=== PATIENT | female | born 1995 | race Caucasian/White ===

== ENCOUNTER 2017-01-30 12:48 | Emergency (ER) | payer BC ==
[2017-01-30] MEDS ORDERED: diphenhydrAMINE 50 MG/ML SDV IVPUSH ONE (13:23)
[2017-01-30] MEDS ORDERED: Sodium Chloride 0.9% 10 ML Syringe FLUSH PRN (13:23)
[2017-01-30] MEDS ORDERED: Metoclopramide 10 MG/2 ML SDV IVPUSH ONE (13:23)
[2017-01-30] MEDS ORDERED: Sodium Chloride 0.9% 500 ML IV ONE (13:24)
[2017-01-30] MEDS ORDERED: Famotidine 20 MG/2 ML SDV IVPUSH ONE (14:24)
--- NOTE | 2017-01-30 14:25 | EDM.PDOC ---
ED HPI DIZZINESS - General Chief Complaint: Neurological Problem Stated Complaint: HEADACHE x 5DAYS, SYNCOPE Time Seen by Provider: 01/30/17 13:06 Source of Information: Reports: Patient, RN notes reviewed - History of Present Illness INITIAL COMMENTS - FREE TEXT/NARRATIVE: 21-year-old female comes in with headache, nausea, vomiting, hematemesis states she's passed out 3 times today. She states she's had a left-sided throbbing headache for about 4-5 days. Last evening she started vomiting with that. States she vomited up some blood. She states she vomited blood again this morning times one. Then later this morning and early afternoon she had several spells of feeling dizzy, lightheaded and states she passed out 2 or 3 times. At this time she still feels somewhat dizzy and lightheaded. Continues to have moderate left-sided headache. The nausea is better. She's not having abdominal pain or diarrhea at this time. She's been drinking water. She's been taking occasional ibuprofen for the headache. Also she has some "bruises on her back that are of concern to her. 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 OB/BYN History: A0 Psychiatric History: Reports: Depression Hematologic History: Reports: Anemia - Past Surgical History Female Surgical History: Reports: None Oncologic Surgical History: Reports: Bone marrow aspiration Other Oncologic Surgeries/Procedures: had bone marrow biopsy- normal Social & Family History - Family History Family Medical History: Noncontributory - Tobacco Use Smoking Status *Q: Never Smoker Used Tobacco, but Quit: Yes Month Tobacco Last Used: 2013 Second Hand Smoke Exposure: No - Caffeine Use Caffeine Use: Reports: None - Alcohol Use Days Per Week of Alcohol Use: 0 - Recreational Drug Use Recreational Drug Use: No ED ROS GENERAL - Review of Systems Review Of Systems: See Below Constitutional: Denies: fever, chills HEENT: Denies: Sinus problem, Throat pain Respiratory: Denies: Shortness of Breath Cardiovascular: Denies: Chest pain GI/Abdominal: Reports: Hematemesis, Nausea, Vomiting. Denies: Abdominal pain, Diarrhea Musculoskeletal: Denies: back pain, joint pain Skin: Reports: bruising (Lower mid back) Neurological: Reports: Dizziness, Headache, Weakness (Generalized). Denies: Numbness, Tingling ED EXAM, DIZZINESS - Physical Exam Exam: See Below General Appearance: alert, no apparent distress Eye Exam: bilateral eye: PERRL Nose: normal inspection Throat/Mouth: Normal inspection, Normal oropharynx, Other (Oral mucosa is somewhat dry) Head Exam: atraumatic. No: facial swelling Neck: supple, full range of motion Respiratory/Chest: no respiratory distress, lungs clear, normal breath sounds Cardiovascular: regular rate, rhythm GI/Abdominal: soft, other (Very mild tenderness upper mid abdomen and left lower quadrant). No: guarding, rebound Neurological: alert, no motor/sensory deficits, oriented x 3 Back Exam: No: paraspinal tenderness, vertebral tenderness Extremities: normal inspection, normal range of motion. No: leg pain Skin Exam: Warm, Dry, Normal color, No rash, Other (2 small oval areas of very slight discoloration lower mid back, no bruising visible at this time, no warmth or erythema) Course - Vital Signs Last Recorded V/S: Last Vital Signs Temp 98.3 F 01/30/17 13:02 Pulse 79 01/30/17 13:02 Resp 16 01/30/17 13:02 BP Pulse Ox 99 01/30/17 13:02 Orthostatic Blood Pressure [ 124/89 Standing] Orthostatic Blood Pressure [ 120/83 Supine] - Orders/Labs/Meds Orders: Active Orders 24 hr Category Date Time Status Peripheral IV Care [RC] . DIRECTED Care 01/30/17 13:24 Active HCG QUALITATIVE,URINE [URCHEM] Stat Lab 01/30/17 14:18 Ordered Sodium Chloride 0.9% [Saline Flush] Med 01/30/17 13:23 Active 10 ml FLUSH ASDIRECTED PRN Peripheral IV Insertion Adult [OM.PC] Stat Oth 01/30/17 13:22 Ordered Medication Orders Sodium Chloride (Saline Flush) 10 ml FLUSH ASDIRECTED PRN PRN Reason: Keep Vein Open Last Admin: 01/30/17 13:48 Dose: 10 ml Labs: Laboratory Tests 01/30/17 01/30/17 Range/Units 13:30 13:30 WBC 6.35 (3.98-10.04) K/mm3 RBC 4.38 (3.98-5.22) M/mm3 Hgb 12.4 (11.2-15.7) gm/L Hct 38.1 (34.1-44.9) % MCV 87.0 (79.4-94.8) fl MCH 28.3 (25.6-32.2) pg MCHC 32.5 (32.2-35.5) g/dl RDW Std Deviation 48.4 H (36.4-46.3) fL Plt Count 288 (182-369) K/mm3 MPV 11.0 (9.4-12.3) fl Neut % (Auto) 46.0 (34.0-71.1) % Lymph % (Auto) 42.0 (19.3-51.7) % Leon % (Auto) 9.8 (4.7-12.5) % Eos % (Auto) 1.1 (0.7-5.8) Baso % (Auto) 0.9 (0.1-1.2) % Neut # (Auto) 2.92 (1.56-6.13) K/mm3 Lymph # (Auto) 2.67 (1.18-3.74) K/mm3 Leon # (Auto) 0.62 H (0.24-0.36) K/mm3 Eos # (Auto) 0.07 (0.04-0.36) K/mm3 Baso # (Auto) 0.06 (0.01-0.08) K/mm3 Sodium 138 (136-145) mEq/L Potassium 4.0 (3.5-5.1) mEq/L Chloride 102 (98-107) mEq/L Carbon Dioxide 26 (21-32) mEq/L Anion Gap 14.0 (5-15) BUN 16 (7-18) mg/dL Creatinine 0.9 (0.55-1.02) mg/dL Est Cr Clr Drug Dosing 82.07 mL/min Estimated GFR (MDRD) > 60 (>60) mL/min BUN/Creatinine Ratio 17.8 (14-18) Glucose 88 (74-106) mg/dL Calcium 8.9 (8.5-10.1) mg/dL Total Bilirubin 0.6 (0.2-1.0) mg/dL AST 15 (15-37) U/L ALT 25 (14-59) U/L Alkaline Phosphatase 92 (46-116) U/L Total Protein 7.5 (6.4-8.2) g/dl Albumin 4.0 (3.4-5.0) g/dl Globulin 3.5 gm/dL Albumin/Globulin Ratio 1.1 (1-2) Meds: Medications Generic Name Dose Route Start Last Admin Trade Name Freq PRN Reason Stop Dose Admin Sodium Chloride 10 ml 01/30/17 13:23 01/30/17 13:48 Saline Flush FLUSH 10 ml ASDIRECTED PRN Administration Keep Vein Open Discontinued Medications Generic Name Dose Route Start Last Admin Trade Name Freq PRN Reason Stop Dose Admin Diphenhydramine HCl 25 mg 01/30/17 13:23 01/30/17 13:42 Benadryl IVPUSH 01/30/17 13:24 25 mg ONETIME ONE Administration Famotidine 20 mg 01/30/17 14:24 Pepcid IVPUSH 01/30/17 14:25 ONETIME ONE Sodium Chloride 500 mls @ 999 mls/hr 01/30/17 13:24 01/30/17 13:41 Normal Saline IV 01/30/17 13:54 999 mls/hr .BOLUS ONE Administration Metoclopramide HCl 5 mg 01/30/17 13:23 01/30/17 13:46 Reglan IVPUSH 01/30/17 13:24 5 mg ONETIME ONE Administration - Re-Assessments/Exams Free Text/Narrative Re-Assessment/Exam: 01/30/17 14:39 and given Reglan 5 mg IV, 500 cc normal saline, Benadryl 25 mg IV. She's been resting comfortably. Headache is almost gone. No vomiting while here in the ED. Her orthoses were good labwork also is good. Hemoglobin 12.4. Chemistries normal. Discharge instructions as documented Departure - Departure Time of Disposition: 14:31 Disposition: Home, Self-Care 01 Condition: fair Clinical Impression: Hematemesis Qualifiers: Nausea presence: with nausea Qualified Code(s): K92.0 - Hematemesis Instructions: Hematemesis Referrals: Vimal Caruso MD [Primary Care Provider] - Forms: ED Department Discharge, Return to Work/School Form Additional Instructions: Clear liquids until this evening, then very careful bland diet as tolerated, Pepcid(generic is famotidine) available OTC, 20 mg twice daily for one week to reduce the acid in her stomach, try eat regular meals and snacks as tolerated, followup with Dr. Saldivar in 3-5 days if symptoms not resolving as expected, return to ED if symptoms worsening in any way 0 - My Orders Last 24 Hours: My Active Orders 01/30/17 13:22 Peripheral IV Insertion Adult [OM.PC] Stat 01/30/17 13:23 Sodium Chloride 0.9% [Saline Flush] 10 ml FLUSH ASDIRECTED PRN 01/30/17 13:24 Peripheral IV Care [RC] . DIRECTED 01/30/17 14:18 HCG QUALITATIVE,URINE [URCHEM] Stat - Assessment/Plan Last 24 Hours: My Active Orders 01/30/17 13:22 Peripheral IV Insertion Adult [OM.PC] Stat 01/30/17 13:23 Sodium Chloride 0.9% [Saline Flush] 10 ml FLUSH ASDIRECTED PRN 01/30/17 13:24 Peripheral IV Care [RC] . DIRECTED 01/30/17 14:18 HCG QUALITATIVE,URINE [URCHEM] Stat
== END 2017-01-30 14:45 | disposition home or self-care (01) ==
LOC: JD.ED 12:48
DX: K92.0 Hematemesis (principal); J45.909 Unspecified asthma, uncomplicated; F32.9 Major depressive disorder, single episode, unspecified; D64.9 Anemia, unspecified; Z87.891 Personal history of nicotine dependence; Z79.899 Other long term (current) drug therapy; Z91.09 Other allergy status, other than to drugs and biological substances
CPT/HCPCS: 36415; 80053; 81025; 85025; 96361; 96374; 96375; 99284; J1200; J2765; J7040; J7050

== ENCOUNTER 2017-02-05 14:19 | Inpatient (IN) | payer BC ==
[2017-02-05] MEDS ORDERED: Sodium Chloride 0.9% 10 ML Syringe FLUSH PRN (14:50)
[2017-02-05] MEDS: Sodium Chloride 0.9% 1,000 ML IV SCH ×2 (15:11→23:24)
[2017-02-05 15:37] LABS: ACETAMINOPHEN 0 ug/mL (10-30)
--- NOTE | 2017-02-05 17:19 | EDM.PDOC ---
ED HPI Behavioral Health - General Chief Complaint: Drug or Alcohol Abuse Stated Complaint: [facility] Time Seen by Provider: 02/05/17 14:35 Source of Information: Reports: Patient, EMS, Family Exam Limitations: Reports: No limitations - History of Present Illness INITIAL COMMENTS - FREE TEXT/NARRATIVE: The patient presents after overdosing on benadryl and red bulls. She took the 25mg capsules of benadryl and there was about 30 to 50. She also took a few red bulls. The patient said a few times to me and EMS that she was not trying to kill herself. She just wanted to numb the pain. She recently had her 2 children taken from her. Her daughter had a head injury. environmental services floor tech took both children. This happened a few weeks ago and she has feel depressed. She is down and not eating. She has been sleeping a lot. She has never been diagnosed with depression or anxiety. I talked with her dad and he feels she was trying to kill herself. She called 911 because she did not feel good after taking the medications. She denies any chest pain, shortness of breath, abdominal pain, nausea or vomiting. Onset of Symptoms: Reports: gradual Duration of Symptoms: Reports: Hour(s): (1pm) Severity: moderate Context, Behavioral Health: Reports: family dynamics Associated Symptoms: Reports: depression, suicidal thought - Related Data Allergies Allergy/AdvReac Type Severity Reaction Status Date / Time isopropyl alcohol Allergy Hives Verified 01/30/17 13:02 Home Medications: Home Meds Ferrous Sulfate [Iron] 325 mg PO DAILY 11/25/16 [History] Past Medical History - Past Health History Medical/Surgical History: Denies Medical/Surgical History Respiratory History: Reports: Asthma Genitourinary History: Reports: UTI, recurrent [employer]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 OB/BYN History: A0 Psychiatric History: Reports: Anxiety, Depression, Panic attack Hematologic History: Reports: Anemia - Past Surgical History Female Surgical History: Reports: None Oncologic Surgical History: Reports: Bone marrow aspiration Other Oncologic Surgeries/Procedures: had bone marrow biopsy- normal Social & Family History - Family History Family Medical History: Noncontributory - Tobacco Use Smoking Status *Q: Never Smoker Used Tobacco, but Quit: Yes Month Tobacco Last Used: 2013 Second Hand Smoke Exposure: No - Caffeine Use Caffeine Use: Reports: Soda - Alcohol Use Days Per Week of Alcohol Use: 0 - Recreational Drug Use Recreational Drug Use: No Recreational Drug Type: Reports: Marijuana/Hashish ED ROS GENERAL - Review of Systems Review Of Systems: See Below Constitutional: Reports: no symptoms HEENT: Reports: No symptoms Respiratory: Reports: No Symptoms Cardiovascular: Reports: No symptoms Endocrine: Reports: no symptoms GI/Abdominal: Reports: No symptoms : Reports: no symptoms Musculoskeletal: Reports: no symptoms Skin: Reports: no symptoms Neurological: Reports: No Symptoms ED EXAM, BEHAVIORAL HEALTH - Physical Exam Exam: See Below Exam Limited By: No limitations General Appearance: alert, no apparent distress Ears: normal external exam Nose: normal inspection Head: atraumatic, normocephalic Neck: normal inspection Respiratory/Chest: no respiratory distress, lungs clear, normal breath sounds Cardiovascular: no edema, no murmur, tachycardia GI/Abdominal: soft, non tender, no organomegaly Back Exam: normal inspection Extremities: normal inspection Neurological: alert, no motor/sensory deficits, oriented x 3 EKG INTERPRETATION EKG Date: 02/05/17 Time: 15:45 Rhythm: NSR Rate (beats/min): 99 [place]: RAD-right axis deviation P-wave: present QRS: normal ST-T: normal QT: normal EKG Interpretation Comments: [facility] COURSE, BEHAVIORAL HEALTH COMP - Course Vital Signs: Last Vital Signs Temp 98.8 F 02/05/17 14:47 Pulse 138 H 02/05/17 14:47 Resp 20 02/05/17 14:47 BP 162/106 H 02/05/17 14:47 Pulse Ox 100 02/05/17 14:47 Orders, Labs, Meds: Active Orders 24 hr Category Date Time Status Cardiac Monitoring [RC] . DIRECTED Care 02/05/17 14:50 Active EKG Documentation Completion [RC] STAT Care 02/05/17 14:51 Active Peripheral IV Care [RC] . DIRECTED Care 02/05/17 14:51 Active Sodium Chloride 0.9% [Normal Saline] 1,000 ml Med 02/05/17 15:00 Active IV ASDIRECTED Sodium Chloride 0.9% [Saline Flush] Med 02/05/17 14:50 Active 10 ml FLUSH ASDIRECTED PRN Peripheral IV Insertion Adult [OM.PC] Stat Oth 02/05/17 14:50 Ordered Medication Orders Sodium Chloride (Normal Saline) 1,000 mls @ 125 mls/hr IV ASDIRECTED SELMA Last Admin: 02/05/17 15:11 Dose: 125 mls/hr Sodium Chloride (Saline Flush) 10 ml FLUSH ASDIRECTED PRN PRN Reason: Keep Vein Open Last Admin: 02/05/17 15:27 Dose: 10 ml Laboratory Tests 02/05/17 02/05/17 02/05/17 Range/Units 15:00 15:00 15:00 WBC 7.45 (3.98-10.04) K/mm3 RBC 4.66 (3.98-5.22) M/mm3 Hgb 12.9 (11.2-15.7) gm/L Hct 40.1 (34.1-44.9) % MCV 86.1 (79.4-94.8) fl MCH 27.7 (25.6-32.2) pg MCHC 32.2 (32.2-35.5) g/dl RDW Std Deviation 47.7 H (36.4-46.3) fL Plt Count 298 (182-369) K/mm3 MPV 11.0 (9.4-12.3) fl Neut % (Auto) 39.3 (34.0-71.1) % Lymph % (Auto) 45.1 (19.3-51.7) % [place] % (Auto) 12.2 (4.7-12.5) % Eos % (Auto) 2.6 (0.7-5.8) Baso % (Auto) 0.7 (0.1-1.2) % Neut # (Auto) 2.93 (1.56-6.13) K/mm3 Lymph # (Auto) 3.36 (1.18-3.74) K/mm3 [place] # (Auto) 0.91 H (0.24-0.36) K/mm3 Eos # (Auto) 0.19 (0.04-0.36) K/mm3 Baso # (Auto) 0.05 (0.01-0.08) K/mm3 Sodium 141 (136-145) mEq/L Potassium 3.5 (3.5-5.1) mEq/L Chloride 104 (98-107) mEq/L Carbon Dioxide 25 (21-32) mEq/L Anion Gap 15.5 H (5-15) BUN 14 (7-18) mg/dL Creatinine 0.9 (0.55-1.02) mg/dL Est Cr Clr Drug Dosing 82.07 mL/min Estimated GFR (MDRD) > 60 (>60) mL/min BUN/Creatinine Ratio 15.6 (14-18) Glucose 78 (74-106) mg/dL Calcium 9.4 (8.5-10.1) mg/dL Total Bilirubin 0.4 (0.2-1.0) mg/dL AST 15 (15-37) U/L ALT 32 (14-59) U/L Alkaline Phosphatase 107 (46-116) U/L Total Protein 7.9 (6.4-8.2) g/dl Albumin 4.3 (3.4-5.0) g/dl Globulin 3.6 gm/dL Albumin/Globulin Ratio 1.2 (1-2) HCG, Qual Negative (NEGATIVE) Salicylates (2.8-20) mg/dL Urine Opiates Screen (NEGATIVE) Ur Buprenorphine Scrn (NEGATIVE) Ur Oxycodone Screen (NEGATIVE) Urine Methadone Screen (NEGATIVE) Ur Propoxyphene Screen (NEGATIVE) Acetaminophen 0 L (10-30) ug/mL Ur Barbiturates Screen (NEGATIVE) Ur Tricyclics Screen (NEGATIVE) Ur Phencyclidine Scrn (NEGATIVE) Ur Amphetamine Screen (NEGATIVE) U Methamphetamines Scrn (NEGATIVE) U Benzodiazepines Scrn (NEGATIVE) U Cocaine Metab Screen (NEGATIVE) U Marijuana (THC) Screen (NEGATIVE) Ethyl Alcohol 0.00 (0.00) gm% 02/05/17 02/05/17 Range/Units 15:00 15:10 WBC (3.98-10.04) K/mm3 RBC (3.98-5.22) M/mm3 Hgb (11.2-15.7) gm/L Hct (34.1-44.9) % MCV (79.4-94.8) fl MCH (25.6-32.2) pg MCHC (32.2-35.5) g/dl RDW Std Deviation (36.4-46.3) fL Plt Count (182-369) K/mm3 MPV (9.4-12.3) fl Neut % (Auto) (34.0-71.1) % Lymph % (Auto) (19.3-51.7) % [place] % (Auto) (4.7-12.5) % Eos % (Auto) (0.7-5.8) Baso % (Auto) (0.1-1.2) % Neut # (Auto) (1.56-6.13) K/mm3 Lymph # (Auto) (1.18-3.74) K/mm3 [place] # (Auto) (0.24-0.36) K/mm3 Eos # (Auto) (0.04-0.36) K/mm3 Baso # (Auto) (0.01-0.08) K/mm3 Sodium (136-145) mEq/L Potassium (3.5-5.1) mEq/L Chloride (98-107) mEq/L Carbon Dioxide (21-32) mEq/L Anion Gap (5-15) BUN (7-18) mg/dL Creatinine (0.55-1.02) mg/dL Est Cr Clr Drug Dosing mL/min Estimated GFR (MDRD) (>60) mL/min BUN/Creatinine Ratio (14-18) Glucose (74-106) mg/dL Calcium (8.5-10.1) mg/dL Total Bilirubin (0.2-1.0) mg/dL AST (15-37) U/L ALT (14-59) U/L Alkaline Phosphatase (46-116) U/L Total Protein (6.4-8.2) g/dl Albumin (3.4-5.0) g/dl Globulin gm/dL Albumin/Globulin Ratio (1-2) HCG, Qual (NEGATIVE) Salicylates 0.6 L (2.8-20) mg/dL Urine Opiates Screen Negative (NEGATIVE) Ur Buprenorphine Scrn Negative (NEGATIVE) Ur Oxycodone Screen Negative (NEGATIVE) Urine Methadone Screen Negative (NEGATIVE) Ur Propoxyphene Screen Negative (NEGATIVE) Acetaminophen (10-30) ug/mL Ur Barbiturates Screen Negative (NEGATIVE) Ur Tricyclics Screen Negative (NEGATIVE) Ur Phencyclidine Scrn Negative (NEGATIVE) Ur Amphetamine Screen Negative (NEGATIVE) U Methamphetamines Scrn Negative (NEGATIVE) U Benzodiazepines Scrn Negative (NEGATIVE) U Cocaine Metab Screen Negative (NEGATIVE) U Marijuana (THC) Screen Negative (NEGATIVE) Ethyl Alcohol (0.00) gm% Medications Generic Name Dose Route Start Last Admin Trade Name Freq PRN Reason Stop Dose Admin Sodium Chloride 1,000 mls @ 125 mls/hr 02/05/17 15:00 02/05/17 15:11 Normal Saline IV 125 mls/hr ASDIRECTED SELMA Administration Sodium Chloride 10 ml 02/05/17 14:50 02/05/17 15:27 Saline Flush FLUSH 10 ml ASDIRECTED PRN Administration Keep Vein Open Re-Assessment/Re-Exam: The patient came by EMS. Her heart rate was fast in the 130s. I did labs and gave her a fluid bolus. Her CBC and CMP look good. Her UDS is negative. Her ETOH is negative. Her salicylates and acetaminophen are negative. She is not . I did and EKG and it showed no acute problems. I called poison control and they recommended watching her tonight. I called Dr Collier and he agreed to the admission. Departure - Departure Time of Disposition: 17:30 Disposition: DC/Tfer to Acute Hospital 02 Condition: fair Clinical Impression: Diphenhydramine overdose Qualifiers: Encounter type: initial encounter Injury intent: intentional self-harm Qualified Code(s): T45.0X2A - Poisoning by antiallergic and antiemetic drugs, intentional self-harm, initial encounter - My Orders Last 24 Hours: My Active Orders 02/05/17 14:50 Cardiac Monitoring [RC] . DIRECTED Sodium Chloride 0.9% [Saline Flush] 10 ml FLUSH ASDIRECTED PRN Peripheral IV Insertion Adult [OM.PC] Stat 02/05/17 14:51 EKG Documentation Completion [RC] STAT Peripheral IV Care [RC] . DIRECTED 02/05/17 15:00 Sodium Chloride 0.9% [Normal Saline] 1,000 ml IV ASDIRECTED - Assessment/Plan Last 24 Hours: My Active Orders 02/05/17 14:50 Cardiac Monitoring [RC] . DIRECTED Sodium Chloride 0.9% [Saline Flush] 10 ml FLUSH ASDIRECTED PRN Peripheral IV Insertion Adult [OM.PC] Stat 02/05/17 14:51 EKG Documentation Completion [RC] STAT Peripheral IV Care [RC] . DIRECTED 02/05/17 15:00 Sodium Chloride 0.9% [Normal Saline] 1,000 ml IV ASDIRECTED
--- NOTE | 2017-02-05 20:20 | PCM.HP ---
H&P History of Present Illness - General Date of Service: 02/05/17 Admit Problem/Dx: Admission Diagnosis/Problem Admission Diagnosis/Problem Tachycardia Source of Information: Patient, Old records, Provider, RN notes reviewed History Limitations: Reports: Altered mental status - History of Present Illness Initial Comments - Free Text/Narative: This is a 21 yo healthy young white woman who comes in with complaints of "not feeling well" after she took a hand full of Benadryl est. 30-50 pills and washed it down with red bulls. She denies being suicidal or homocidal. She denies any previous suicide attempt in the past. Patient carries no hx/o depression or anxiety. However she recently lost her children through social security benefits interviewer. She has been feeling emotionally depressed since then. She admits to taking those pills to "numb her pain". She has been sleeping a lot and does have much appetite. Her dad feels "she was trying to kill her self". Her initial work up in ED shows an unremarkable CBC and chemistry. UDS and ETOH are also negative. Patient is being admitted for Self Harm via Attempted Overdose. She received initial treatment in ED before she was sent to the floor for further treatment. 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 OB/BYN History: A0 Psychiatric History: Reports: Anxiety, Depression, Panic attack, Suicide attempt Hematologic History: Reports: Anemia - Past Surgical History Female Surgical History: Reports: None Oncologic Surgical History: Reports: Bone marrow aspiration Other Oncologic Surgeries/Procedures: had bone marrow biopsy- normal Social & Family History - Family History Family Medical History: Noncontributory - Tobacco Use Smoking Status *Q: Former Smoker Used Tobacco, but Quit: No Month Tobacco Last Used: 2013 Second Hand Smoke Exposure: Yes - Caffeine Use Caffeine Use: Reports: Energy drinks Caffeine Use Comment: Just this admission - Alcohol Use Days Per Week of Alcohol Use: 0 - Recreational Drug Use Recreational Drug Use: No Recreational Drug Type: Reports: Marijuana/Hashish H&P Review of Systems - Review of Systems: Review Of Systems: See Below General: Denies: fever, chills, malaise, weakness, fatigue HEENT: Reports: no symptoms Pulmonary: Denies: Shortness of Breath Cardiovascular: Denies: chest pain, palpitations, dyspnea on exertion Gastrointestinal: Denies: Abdominal pain, Nausea, Vomiting Genitourinary: Reports: no symptoms Musculoskeletal: Reports: no symptoms Skin: Denies: rash, erythema Psychiatric: Reports: depression. Denies: confusion, anxiety, agitation, hallucinations, suicidal ideation, hallucinations (auditory) Neurological: Denies: Difficulty Walking, Weakness, Gait Disturbance Hematologic/Lymphatic: Reports: no symptoms Immunologic: Reports: no symptoms Exam - Exam Exam: See Below - Vital Signs Vital Signs: Last Vital Signs Temp 37.4 C 02/05/17 20:00 Pulse 138 H 02/05/17 14:47 Resp 18 02/05/17 20:00 BP 131/88 02/05/17 20:00 Pulse Ox 99 02/05/17 20:00 Weight: 50.938 kg - Exam General: alert, oriented, cooperative, mild distress HEENT: Conjunctiva clear, EACs clear, EOMI, Hearing intact, Mucosa moist & pink , Nares patent, Normal nasal septum, Posterior pharynx clear, Pupils equal, Pupils reactive Neck: supple, trachea midline, 2+ carotid pulse wo bruit, full range of motion. No: JVD Lungs: Clear to auscultation, Normal respiratory effort Cardiovascular: regular rhythm, tachycardia Abdomen: normal bowel sounds, soft. No: organomegaly (Female) Exam: Deferred Rectal (Female) Exam: Deferred Back Exam: normal inspection, full range of motion Extremities: normal inspection, normal pulses Peripheral Pulses: 3+: posterior tibial (L), posterior tibial (R), dorsalis pedis (L), dorsalis pedis (R) Skin: warm, dry, intact Neuro Extensive - Mental Status: oriented x3, normal cognition, memory intact Neuro Extensive - Motor, Sensory, Reflexes: CN II-XII intact, normal gait Psychiatric: alert, normal affect, normal mood - Patient Data Result Diagrams: 02/05/17 15:00 02/05/17 15:00 *Q Meaningful Use (ADM) - VTE *Q VTE Criteria *Q: - Stroke *Q Stroke Criteria *Q: - AMI *Q AMI Criteria *Q: Problem List Initiated/Reviewed/Updated: Yes Orders Last 24hrs: Medication Orders Sodium Chloride (Normal Saline) 1,000 mls @ 125 mls/hr IV ASDIRECTED SELMA Last Admin: 02/05/17 15:11 Dose: 125 mls/hr Sodium Chloride (Saline Flush) 10 ml FLUSH ASDIRECTED PRN PRN Reason: Keep Vein Open Last Admin: 02/05/17 15:27 Dose: 10 ml Assessment/Plan Comment:: Assessment/Plan: Acute: Intentional Self Harm via Attempted Overdose - She denies being depressed - But her children was recently taken away from her - Dad feels she was "trying to kill her self" - Mild-Moderate Risk for Suicide Situational and Emotional Depression - Tries to numb the pain so she took Benadryl 25 mg po about 30-50 pills plus Red Bulls - She denies taking ETOH - No illicit drug use Poor Family Dynamic - Consult SW Sinus Tachycardia - 2/2 Caffeine overdose - Took too much red bulls drink - Will monitor Plan: Admit to ICU with 1:1 Routine AM Labs Supportive Care PRN Meds for symptomatic control Aggressive IV fluids Consult Tele-psych CM/SW for d/c planning
[2017-02-05] MEDS ORDERED: Acetaminophen 325 MG Tab PO PRN (20:27)
[2017-02-05] MEDS ORDERED: HYDROmorphone 1 MG/ML Syringe IVPUSH PRN (20:27)
[2017-02-05] MEDS ORDERED: Albuterol/Ipratropium 3.0-0.5 MG/3 ML Neb Soln NEB PRN (20:27)
[2017-02-05] MEDS ORDERED: Docusate Sodium 100 MG Cap PO PRN (20:27)
[2017-02-05] MEDS ORDERED: Temazepam 15 MG Cap PO PRN (20:27)
[2017-02-05] MEDS ORDERED: Polyethylene Glycol 3350 Powder 17 GM Packet PO PRN (20:27)
[2017-02-05] MEDS ORDERED: Bisacodyl 5 MG Tab PO PRN (20:27)
[2017-02-05] MEDS ORDERED: Acetaminophen/HYDROcodone 325-5 MG Tab PO PRN (20:27)
[2017-02-05] MEDS ORDERED: Promethazine 12.5 MG in Sodium Chloride 0.9% 50 ML IV PRN (20:27)
[2017-02-05] MEDS ORDERED: Ondansetron 4 MG/2 ML SDV IV PRN (20:27)
[2017-02-05] MEDS ORDERED: LORazepam 2 MG/ML MDV IV PRN (20:27)
[2017-02-06] MEDS: LORazepam 0.5 MG Tab PO SCH ×2 (08:31→21:37)
[2017-02-06] MEDS: FLUoxetine 20 MG Cap PO SCH (08:31)
[2017-02-06] MEDS: Ferrous Sulfate 325 MG Tab PO SCH (08:31)
[2017-02-06] MEDS: Sodium Chloride 0.9% 1,000 ML IV SCH (09:57)
[2017-02-06] MEDS ORDERED: HYDROmorphone 0.5 MG/0.5 ML Syringe IVPUSH PRN (13:23)
--- NOTE | 2017-02-06 14:30 | PCM.PN ---
- General Info Date of Service: 02/06/17 Functional Status: Reports: tolerating diet, ambulating - Review of Systems General: Reports: No Symptoms HEENT: Reports: no symptoms Pulmonary: Reports: no symptoms Cardiovascular: Reports: No Symptoms Gastrointestinal: Reports: No symptoms Genitourinary: Reports: no symptoms Musculoskeletal: Reports: no symptoms Skin: Reports: no symptoms Neurological: Reports: No Symptoms Psychiatric: Reports: no symptoms - Patient Data Vitals - most recent: Last Vital Signs Temp 37.0 C 02/06/17 12:00 Pulse 101 H 02/05/17 20:01 Resp 16 02/06/17 12:00 BP 122/68 02/06/17 12:00 Pulse Ox 98 02/06/17 12:00 Weight - most recent: 51.483 kg I&O - last 24 hours: Intake & Output 02/05/17 02/06/17 02/06/17 22:59 06:59 14:59 Intake Total 1620 120 Output Total 500 Balance 1120 120 Lab Results last 24 hrs: Laboratory Results - last 24 hr 02/06/17 02/06/17 Range/Units 05:55 05:55 WBC 6.83 (3.98-10.04) K/mm3 RBC 3.95 L (3.98-5.22) M/mm3 Hgb 11.2 (11.2-15.7) gm/L Hct 35.2 (34.1-44.9) % MCV 89.1 (79.4-94.8) fl MCH 28.4 (25.6-32.2) pg MCHC 31.8 L (32.2-35.5) g/dl RDW Std Deviation 48.7 H (36.4-46.3) fL Plt Count 255 (182-369) K/mm3 MPV 11.2 (9.4-12.3) fl Neut % (Auto) 39.3 (34.0-71.1) % Lymph % (Auto) 47.1 (19.3-51.7) % [place] % (Auto) 11.3 (4.7-12.5) % Eos % (Auto) 1.5 (0.7-5.8) Baso % (Auto) 0.7 (0.1-1.2) % Neut # (Auto) 2.68 (1.56-6.13) K/mm3 Lymph # (Auto) 3.22 (1.18-3.74) K/mm3 [place] # (Auto) 0.77 H (0.24-0.36) K/mm3 Eos # (Auto) 0.10 (0.04-0.36) K/mm3 Baso # (Auto) 0.05 (0.01-0.08) K/mm3 Sodium 143 (136-145) mEq/L Potassium 3.8 (3.5-5.1) mEq/L Chloride 108 H (98-107) mEq/L Carbon Dioxide 25 (21-32) mEq/L Anion Gap 13.8 (5-15) BUN 11 (7-18) mg/dL Creatinine 0.9 (0.55-1.02) mg/dL Est Cr Clr Drug Dosing 81.71 mL/min Estimated GFR (MDRD) > 60 (>60) mL/min BUN/Creatinine Ratio 12.2 L (14-18) Glucose 89 (74-106) mg/dL Calcium 7.6 L (8.5-10.1) mg/dL Magnesium 2.1 (1.8-2.4) mg/dl Med Orders - Current: Current Medications Acetaminophen (Tylenol) 650 mg PO Q4H PRN PRN Reason: Pain (Mild 1-3)/fever Hydrocodone Bitart/Acetaminophen ([place] 325-5 Mg) 1 tab PO Q4H PRN PRN Reason: Pain (moderate 4-6) Last Admin: 02/06/17 09:09 Dose: 1 tab Albuterol/Ipratropium (Duoneb 3.0-0.5 Mg/3 Ml) 3 ml NEB Q4H PRN PRN Reason: Shortness Of Breath/wheezing Bisacodyl (Dulcolax) 5 mg PO DAILY PRN PRN Reason: Constipation Docusate Sodium (Colace) 100 mg PO BID PRN PRN Reason: Constipation Ferrous Sulfate (Ferrous Sulfate) 325 mg PO DAILY [facility] Last Admin: 02/06/17 08:31 Dose: 325 mg Fluoxetine HCl (Prozac) 20 mg PO DAILY [facility] Last Admin: 02/06/17 08:31 Dose: 20 mg Hydromorphone HCl (Dilaudid) 0.25 mg IVPUSH Q2H PRN PRN Reason: Pain (severe 7-10) Sodium Chloride (Normal Saline) 1,000 mls @ 125 mls/hr IV ASDIRECTED [facility] Last Admin: 02/06/17 09:57 Dose: 125 mls/hr Lorazepam (Ativan) 1 mg IV Q6H PRN PRN Reason: Nausea/Vomiting Lorazepam (Ativan) 0.5 mg PO BID [facility] Last Admin: 02/06/17 08:31 Dose: 0.5 mg Ondansetron HCl (Zofran) 4 mg IV Q6H PRN PRN Reason: Nausea/Vomiting Polyethylene Glycol (Miralax) 17 gm PO DAILY PRN PRN Reason: Constipation Quetiapine Fumarate (Seroquel) 25 mg PO BEDTIME [facility] Senna/Docusate Sodium (Senna Plus) 1 tab PO BID PRN PRN Reason: Constipation Sodium Chloride (Saline Flush) 10 ml FLUSH ASDIRECTED PRN PRN Reason: Keep Vein Open Last Admin: 02/05/17 15:27 Dose: 10 ml Temazepam (Restoril) 15 mg PO BEDTIME PRN PRN Reason: Sleep Discontinued Medications Hydromorphone HCl (Dilaudid) 0.25 mg IVPUSH Q2H PRN PRN Reason: Pain (severe 7-10) Promethazine HCl 12.5 mg/ (Sodium Chloride) 50.5 mls @ 100 mls/hr IV Q6H PRN PRN Reason: Nausea/Vomiting - Exam Quality Assessment: DVT prophylaxis General: alert, oriented, cooperative, no acute distress HEENT: Pupils equal, Pupils reactive, EOMI Neck: supple, trachea midline Lungs: Normal respiratory effort Cardiovascular: Regular Rate, Regular Rhythm Abdomen: bowel sounds present, soft, no tenderness, no distension (Female) Exam: Deferred Back Exam: normal inspection Extremities: normal pulses Skin: warm Neurological: no new focal deficit, normal gait, normal speech Psy/Mental Status: alert, depressed - Problem List & Annotations (1) Depression SNOMED Code(s): 51015873 Code(s): F32.9 - MAJOR DEPRESSIVE DISORDER, SINGLE EPISODE, UNSPECIFIED Status: Acute Current Visit: Yes (2) Psychosis SNOMED Code(s): 70796002 Code(s): F29 - UNSP PSYCHOSIS NOT DUE TO A SUBSTANCE OR KNOWN PHYSIOL COND Status: Acute Current Visit: Yes (3) PTSD (post-traumatic stress disorder) SNOMED Code(s): 85440801 Code(s): F43.10 - POST-TRAUMATIC STRESS DISORDER, UNSPECIFIED Status: Acute Current Visit: Yes (4) Diphenhydramine overdose SNOMED Code(s): 206456254 Code(s): T45.0X1A - POISONING BY ANTIALLERG/ANTIEMETIC, ACCIDENTAL, INIT Status: Acute Current Visit: Yes Qualifiers: Encounter type: initial encounter Injury intent: intentional self-harm Qualified Code(s): T45.0X2A - Poisoning by antiallergic and antiemetic drugs, intentional self-harm, initial encounter - Problem List Review Problem List Initiated/Reviewed/Updated: Yes - My Orders Last 24 Hours: My Active Orders 02/06/17 12:06 Patient Status [ADT] Routine - Plan Plan:: Assessment/Plan: Acute: Intentional Self Harm via Attempted Overdose - She denies being depressed - But her children was recently taken away from her - Dad feels she was "trying to kill her self" - Mild-Moderate Risk for Suicide Situational and Emotional Depression - Tries to numb the pain so she took Benadryl 25 mg po about 30-50 pills plus Red Bulls - She denies taking ETOH - No illicit drug use Poor Family Dynamic - Consult SW Sinus Tachycardia - 2/2 Caffeine overdose - Took too much red bulls drink - Will monitor Psychiatric -Depression -PTSD Psychosis Plan: Transfer to floor with 1:1 Routine AM Labs Supportive Care PRN Meds for symptomatic control Aggressive IV fluids Psych meds per Dr Muñoz CM/SW for d/c planning
--- NOTE | 2017-02-06 17:35 | CONS ---
CONSULTING PHYSICIAN: Mike Muñoz MD DATE OF CONSULTATION: 02/06/2017 This is a 60-minute inpatient clinical event. IDENTIFICATION: The patient is a 21-year-old female, who is admitted to the MICU at [facility] in [place], [place] on 02/05/2017. She is seen for psychiatric evaluation today to assess for depression as staff is concerned that the admission was a result of a possible suicide attempt by overdose. CHIEF COMPLAINT: "I just think about my 2 girls and I got really overwhelmed." HISTORY OF PRESENT ILLNESS: The patient is a 21-year-old female, who reports that she had become increasingly depressed because her 2-year-old daughter and 2-month-old daughter are with their fathers and she is not feeling good about this situation. She states that she had been having anxiety to the point where "I shake" during the day and last night she states "I just wanted that none feeling where I didn't feel anything." The patient denies that she was suicidal at all, but she took "about 30 Benadryl's" in an attempt to stop feeling bad. She states that she began feeling funny and then she called for help and was brought to the emergency room and subsequently admitted for concerns regarding tachycardia. Staff is reporting the patient had to lucrecia the Benadryl with some Red Bull. The patient states that she has been depressed in addition to that effect she is reporting auditory and visual hallucinations that have been going on for some time where it appears her grandparents calling to her and she will "see people that aren't there" particularly when she is in school. She reports disrupted sleep, social appetite, and increased crying episodes. She states that she still has good interest in activities, good energy levels and she denies any isolative behaviors. She does have racing thoughts and ruminations. She has lot of anxiety. Denies any OCD symptoms. Denies any mood swings. Denies any illicit substance use or excessive alcohol use complicating the clinical picture. Again, she is denying that she is suicidal or homicidal. MEDICATIONS: At time of presentation, none. The patient states she was taking iron supplements prior to admission. ALLERGIES: No known drug allergies. PAST MEDICAL HISTORY: 1. Tachycardia, on admission. 2. Possible anemia, which might account for the iron supplementation. REVIEW OF SYSTEMS: Aside from cardiovascular and blood, all other major organ systems are negative at this point in time for acute difficulties or complications. FAMILY PSYCHIATRIC AND CD HISTORY: The patient reports father and sister have a history of anxiety disorder. PAST PSYCHIATRIC AND CD HISTORY: The patient denies any previous psychiatric hospitalizations or chemical dependency treatment. She is a nontobacco user. Denies any previous suicide attempts or self-injurious behaviors. Denies any abuse issues while being raised. Does report some anorectic behaviors when younger, but she states she stopped this on her own. Denies any prior psychiatric medication history. SOCIAL HISTORY: The patient was born and raised in [place], [place]. She is the second of 5 siblings and 4 other sisters. The patient's parents when the patient was 7 years of age. She stayed with her father after the divorce. Father works for a [employer] company in [place]. The patient did not maintain contact with her mother after divorce and does not know what her mother did. The patient's highest level of education is that she is currently a senior at high school at [employer]. She has never been and not involved in any current relationship. She had 1 miscarriage at 18 years of age. She has 2 children, a 2-year-old daughter and a 2-month-old daughter, from 2 different relationships. The patient currently lives in an apartment with her girlfriend and it is a tiny home and her father lives upstairs and she is close with her father and has good relationship with the father. She denies any prior legal difficulties. She is agnostic in [place] in terms of her kevin formation. She enjoys walking in her spare time. MENTAL STATUS EXAM: The patient is a 21-year-old female, in no apparent distress. Speech is of regular rate and rhythm. The patient is cognitively oriented. Psychomotor activities within normal limits. There is no abnormal motor movements or tics observed. Gait and station are not observed. This patient is sitting in bed for the entirety of the inpatient consult. Mood is depressed and anxious. Affect consistent with stated mood, somewhat restricted, but cooperative overall for the purposes of the inpatient psychiatric consult. There is no behavioral or stated evidence of acute suicidal or homicidal ideation. Thought content is significant for non-command type auditory hallucinations and visual hallucinations. Thought processes are significant for racing thoughts and ruminations. There are no manic symptoms or loose associations evident. Judgment and insight appear unimpaired at this point in time. Motivation for help is good. VITAL SIGNS: 5 feet 3 inches tall, 112 pounds, 118/83, 63, 17, 98.5 degrees. IMPRESSION: [place] I: 1. Major depressive disorder, F32.3. 2. Psychosis, not otherwise specified, F29. 3. Rule out post-traumatic stress disorder, F43.10. [place] II: None. [place] III: 1. Tachycardia, on admission. 2. Possible history of anemia. [place] IV: Severe. [place] V: 50 to 55. PLAN: 1. Begin trial of Ativan 0.5 mg b.i.d. for anxiety reduction. 2. Begin trial of Prozac 20 mg q.a.m. to help with symptoms of depression and anxiety. 3. Begin trial of Seroquel 25 mg at bedtime to help reduce racing thoughts and ruminations and psychotic symptoms as well as for sleep initiation and maintenance and anxiety reduction. 4. The patient is apprised of benefits and side effects of her newly initiated psychiatric medication regimen. She acknowledges understanding of these facts and had no further questions by the end of the interview session. 5. Recommend counseling for psychosocial issues. 6. Pastoral guidance. 7. Recommend when the patient is medically stabilized that she be discharged back to the community. She does not appear to be a danger to herself or others from a psychiatric standpoint. I would also recommend the patient have appointment made with Outpatient Psychiatry within 2 weeks to assess her overall function and efficacy of her newly initiated psychiatric medication regimen. 8. We will continue to follow up with the patient on an as-needed basis while she remains on the inpatient MICU in Med/Surg unit. 9. We will follow up with the patient sooner if any complications in the interim. 10.Crisis plan is in place. MMAMBER /[id number]
[2017-02-06] MEDS ORDERED: QUEtiapine 25 MG Tab PO SCH (21:00)
[2017-02-07] MEDS: Sodium Chloride 0.9% 1,000 ML IV SCH (02:34)
[2017-02-07 08:54] VITALS: BP 115/63
[2017-02-07] MEDS: LORazepam 0.5 MG Tab PO SCH (09:06)
[2017-02-07] MEDS: FLUoxetine 20 MG Cap PO SCH (09:06)
[2017-02-07] MEDS: Ferrous Sulfate 325 MG Tab PO SCH (09:06)
--- NOTE | 2017-02-07 09:53 | PCM.DCSUM1 ---
<Kassandra Mulligan M - Last Filed: 02/07/17 09:53> Discharge Summary - Hospital Course Free Text/Narrative:: This is a 21 yo healthy young white woman who comes in with complaints of "not feeling well" after she took a hand full of Benadryl est. 30-50 pills and washed it down with red bulls. She denies being suicidal or homocidal. She denies any previous suicide attempt in the past. Patient carries no hx/o depression or anxiety. However she recently lost her children through social work program coordinator. She has been feeling emotionally depressed since then. She admits to taking those pills to "numb her pain". She has been sleeping a lot and does have much appetite. Her dad feels "she was trying to kill her self". Her initial work up in ED shows an unremarkable CBC and chemistry. UDS and ETOH are also negative. Patient is being admitted for Self Harm via Attempted Overdose. She received initial treatment in ED before she was sent to the floor for further treatment. She was admitted; hydrated with IVF, monitored on telemetry with no arrhythmias noted, labs followed with no acute changes. Dr Muñoz, Psychiatry was consulted who started her on Prozac and ativan. She worked with Social Work for outpatient treatment plan and follow up. She will follow up with Psychiatry as instructed and with PCP within 5-7 days of discharge. - Discharge Data Discharge Date: 02/07/17 (admit date 02/05/17) Discharge Disposition: Home, Self-Care 01 Condition: Good - Discharge Diagnosis/Problem(s) (1) Depression SNOMED Code(s): 29672196 ICD Code: F32.9 - MAJOR DEPRESSIVE DISORDER, SINGLE EPISODE, UNSPECIFIED Status: Acute Priority: High Qualifiers: Depression Type: major depressive disorder Active/Remission status: currently active Psychotic features: with psychotic features (2) Diphenhydramine overdose SNOMED Code(s): 617338522 ICD Code: T45.0X1A - POISONING BY ANTIALLERG/ANTIEMETIC, ACCIDENTAL, INIT Status: Acute Priority: High Qualifiers: Encounter type: initial encounter Injury intent: intentional self-harm Qualified Code(s): T45.0X2A - Poisoning by antiallergic and antiemetic drugs, intentional self-harm, initial encounter (3) PTSD (post-traumatic stress disorder) SNOMED Code(s): 57306025 ICD Code: F43.10 - POST-TRAUMATIC STRESS DISORDER, UNSPECIFIED Status: Acute Priority: High (4) Psychosis SNOMED Code(s): 57807257 ICD Code: F29 - UNSP PSYCHOSIS NOT DUE TO A SUBSTANCE OR KNOWN PHYSIOL COND Status: Acute Priority: High Qualifiers: Psychosis type: other Qualified Code(s): F28 - Other psychotic disorder not due to a substance or known physiological condition - Patient Summary/Data Operative Procedure(s) Performed: None Complications: None Consults: Consultations 02/05/17 20:27 Consult to Case Management [CONS] Routine Consult to Crayon Sawyer [CONS] Routine Consult to Spiritual Care [CONS] Routine 02/05/17 20:30 Consult to Physician [CONS] Routine Labs Pending at D/C: None Recommended Follow-up Testing/Procedures: Follow up with PCP, Dr. Saldivar within 5-7 days of discharge Follow up with Psychiatry as instructed, within 2 weeks of discharge Planned Operative Procedure(s) after DC: None Hospital Course: As above - Patient Instructions Diet: Usual Diet as Tolerated, Drink 8-10+ Glasses/Day Activity: As Tolerated Driving: May Drive Today Showering/Bathing: May Shower Notify Provider of: Fever, Increased Pain, Nausea and/or Vomiting - Discharge Plan Prescriptions/Med Rec: FLUoxetine [PROzac] 20 mg PO DAILY #30 cap LORazepam [Ativan] 0.5 mg PO BID #15 tablet QUEtiapine [SEROquel] 25 mg PO BEDTIME #30 tablet Home Medications: Home Meds Ferrous Sulfate [Iron] 325 mg PO DAILY 11/25/16 [History] FLUoxetine [PROzac] 20 mg PO DAILY #30 cap 02/07/17 [Rx] LORazepam [Ativan] 0.5 mg PO BID #15 tablet 02/07/17 [Rx] QUEtiapine [SEROquel] 25 mg PO BEDTIME #30 tablet 02/07/17 [Rx] Patient Handouts: Self-Destructive Behavior, Suicidal Feelings: How to Help Yourself Referrals: Delia Carrillo NP [Nurse Practitioner] - 02/24/17 9:30 am (Psychologist follow-up appointment. Please come at 0900 to [facility].) Vimal Caruso MD [Primary Care Provider] - 02/13/17 10:45 am - Discharge Summary/Plan Comment DC Time >30 min.: Yes (40 min) - General Info Date of Service: 02/07/17 Admission Dx/Problem (Free Text: Admission Diagnosis/Problem Admission Diagnosis/Problem Tachycardia Functional Status: Reports: pain controlled, tolerating diet, ambulating, urinating. Denies: new symptoms - Review of Systems General: Reports: No Symptoms HEENT: Reports: no symptoms Pulmonary: Reports: no symptoms Cardiovascular: Reports: No Symptoms Gastrointestinal: Reports: No symptoms Genitourinary: Reports: no symptoms Musculoskeletal: Reports: no symptoms Skin: Reports: no symptoms Neurological: Reports: No Symptoms Psychiatric: Reports: no symptoms - Patient Data Vitals - Most Recent: Last Vital Signs Temp 98.2 F 02/07/17 08:50 Pulse 72 02/07/17 08:50 Resp 18 02/07/17 08:50 BP 115/63 02/07/17 08:50 Pulse Ox 97 02/07/17 08:50 Weight - Most Recent: 52.758 kg I&O - Last 24 hours: Intake & Output 02/06/17 02/07/17 02/07/17 22:59 06:59 14:59 Intake Total 1700 1375 Output Total 0 Balance 1700 1375 Lab Results - Last 24 hrs: Laboratory Results - last 24 hr 02/07/17 02/07/17 Range/Units 09:04 09:04 WBC 6.31 (3.98-10.04) K/mm3 RBC 4.06 (3.98-5.22) M/mm3 Hgb 11.7 (11.2-15.7) gm/L Hct 35.8 (34.1-44.9) % MCV 88.2 (79.4-94.8) fl MCH 28.8 (25.6-32.2) pg MCHC 32.7 (32.2-35.5) g/dl RDW Std Deviation 46.7 H (36.4-46.3) fL Plt Count 245 (182-369) K/mm3 MPV 10.7 (9.4-12.3) fl Neut % (Auto) 42.2 (34.0-71.1) % Lymph % (Auto) 44.2 (19.3-51.7) % Ocean % (Auto) 9.8 (4.7-12.5) % Eos % (Auto) 3.0 (0.7-5.8) Baso % (Auto) 0.8 (0.1-1.2) % Neut # (Auto) 2.66 (1.56-6.13) K/mm3 Lymph # (Auto) 2.79 (1.18-3.74) K/mm3 Ocean # (Auto) 0.62 H (0.24-0.36) K/mm3 Eos # (Auto) 0.19 (0.04-0.36) K/mm3 Baso # (Auto) 0.05 (0.01-0.08) K/mm3 Sodium 141 (136-145) mEq/L Potassium 4.0 (3.5-5.1) mEq/L Chloride 107 (98-107) mEq/L Carbon Dioxide 25 (21-32) mEq/L Anion Gap 13.0 (5-15) BUN 7 (7-18) mg/dL Creatinine 0.8 (0.55-1.02) mg/dL Est Cr Clr Drug Dosing 94.20 mL/min Estimated GFR (MDRD) > 60 (>60) mL/min BUN/Creatinine Ratio 8.8 L (14-18) Glucose 88 (74-106) mg/dL Calcium 8.4 L (8.5-10.1) mg/dL Total Bilirubin 0.3 (0.2-1.0) mg/dL AST 12 L (15-37) U/L ALT 29 (14-59) U/L Alkaline Phosphatase 88 (46-116) U/L Total Protein 6.7 (6.4-8.2) g/dl Albumin 3.6 (3.4-5.0) g/dl Globulin 3.1 gm/dL Albumin/Globulin Ratio 1.2 (1-2) Med Orders - Current: Current Medications Acetaminophen (Tylenol) 650 mg PO Q4H PRN PRN Reason: Pain (Mild 1-3)/fever Hydrocodone Bitart/Acetaminophen ([place] 325-5 Mg) 1 tab PO Q4H PRN PRN Reason: Pain (moderate 4-6) Last Admin: 02/06/17 09:09 Dose: 1 tab Albuterol/Ipratropium (Duoneb 3.0-0.5 Mg/3 Ml) 3 ml NEB Q4H PRN PRN Reason: Shortness Of Breath/wheezing Bisacodyl (Dulcolax) 5 mg PO DAILY PRN PRN Reason: Constipation Docusate Sodium (Colace) 100 mg PO BID PRN PRN Reason: Constipation Ferrous Sulfate (Ferrous Sulfate) 325 mg PO DAILY [facility] Last Admin: 02/07/17 09:06 Dose: 325 mg Fluoxetine HCl (Prozac) 20 mg PO DAILY [facility] Last Admin: 02/07/17 09:06 Dose: 20 mg Hydromorphone HCl (Dilaudid) 0.25 mg IVPUSH Q2H PRN PRN Reason: Pain (severe 7-10) Sodium Chloride (Normal Saline) 1,000 mls @ 125 mls/hr IV ASDIRECTED [facility] Last Admin: 02/07/17 02:34 Dose: 125 mls/hr Lorazepam (Ativan) 1 mg IV Q6H PRN PRN Reason: Nausea/Vomiting Lorazepam (Ativan) 0.5 mg PO BID [facility] Last Admin: 02/07/17 09:06 Dose: 0.5 mg Ondansetron HCl (Zofran) 4 mg IV Q6H PRN PRN Reason: Nausea/Vomiting Polyethylene Glycol (Miralax) 17 gm PO DAILY PRN PRN Reason: Constipation Quetiapine Fumarate (Seroquel) 25 mg PO BEDTIME [facility] Last Admin: 02/06/17 21:38 Dose: 25 mg Senna/Docusate Sodium (Senna Plus) 1 tab PO BID PRN PRN Reason: Constipation Sodium Chloride (Saline Flush) 10 ml FLUSH ASDIRECTED PRN PRN Reason: Keep Vein Open Last Admin: 02/05/17 15:27 Dose: 10 ml Temazepam (Restoril) 15 mg PO BEDTIME PRN PRN Reason: Sleep Discontinued Medications Hydromorphone HCl (Dilaudid) 0.25 mg IVPUSH Q2H PRN PRN Reason: Pain (severe 7-10) Promethazine HCl 12.5 mg/ (Sodium Chloride) 50.5 mls @ 100 mls/hr IV Q6H PRN PRN Reason: Nausea/Vomiting - Exam Quality Assessment: Reports: DVT prophylaxis General: Reports: alert, oriented, cooperative, no acute distress HEENT: Reports: Pupils equal, Pupils reactive, EOMI, Mucous membr. moist/pink Neck: Reports: supple Lungs: Reports: Clear to auscultation, Normal respiratory effort Cardiovascular: Reports: Regular Rate, Regular Rhythm Abdomen: Reports: bowel sounds present, soft, no tenderness (Female) Exam: Deferred Rectal (Female) Exam: Deferred Extremities: Reports: no edema Neurological: Reports: no new focal deficit Psy/Mental Status: Reports: alert, normal affect, normal mood *Q Meaningful Use (DIS) - VTE *Q VTE Criteria *Q: - Stroke *Q Stroke Criteria *Q: - AMI *Q AMI Criteria *Q: <Teresa Stanley - Last Filed: 02/09/17 16:47> Discharge Summary - Hospital Course Free Text/Narrative:: Psychiatry follow up as mentioned; treatment provided is outlined above. - Discharge Diagnosis/Problem(s) (1) Depression SNOMED Code(s): 53271652 ICD Code: F32.9 - MAJOR DEPRESSIVE DISORDER, SINGLE EPISODE, UNSPECIFIED Status: Acute Priority: High Qualifiers: Depression Type: major depressive disorder Active/Remission status: currently active Psychotic features: with psychotic features (2) Psychosis SNOMED Code(s): 10304612 ICD Code: F29 - UNSP PSYCHOSIS NOT DUE TO A SUBSTANCE OR KNOWN PHYSIOL COND Status: Acute Priority: High Qualifiers: Psychosis type: other Qualified Code(s): F28 - Other psychotic disorder not due to a substance or known physiological condition (3) PTSD (post-traumatic stress disorder) SNOMED Code(s): 42266842 ICD Code: F43.10 - POST-TRAUMATIC STRESS DISORDER, UNSPECIFIED Status: Acute Priority: High (4) Diphenhydramine overdose SNOMED Code(s): 579665256 ICD Code: T45.0X1A - POISONING BY ANTIALLERG/ANTIEMETIC, ACCIDENTAL, INIT Status: Acute Priority: High Qualifiers: Encounter type: initial encounter Injury intent: intentional self-harm Qualified Code(s): T45.0X2A - Poisoning by antiallergic and antiemetic drugs, intentional self-harm, initial encounter - Patient Summary/Data Consults: Consultations 02/05/17 20:27 Consult to Case Management [CONS] Routine Consult to Crayon Sawyer [CONS] Routine Consult to Spiritual Care [CONS] Routine 02/05/17 20:30 Consult to Physician [CONS] Routine - Patient Data Vitals - Most Recent: Last Vital Signs Temp 36.8 C 02/07/17 08:50 Pulse 72 02/07/17 08:50 Resp 18 02/07/17 08:50 BP 115/63 02/07/17 08:50 Pulse Ox 97 02/07/17 08:50 Med Orders - Current: Current Medications Discontinued Medications Acetaminophen (Tylenol) 650 mg PO Q4H PRN PRN Reason: Pain (Mild 1-3)/fever Hydrocodone Bitart/Acetaminophen ([place] 325-5 Mg) 1 tab PO Q4H PRN PRN Reason: Pain (moderate 4-6) Last Admin: 02/06/17 09:09 Dose: 1 tab Albuterol/Ipratropium (Duoneb 3.0-0.5 Mg/3 Ml) 3 ml NEB Q4H PRN PRN Reason: Shortness Of Breath/wheezing Bisacodyl (Dulcolax) 5 mg PO DAILY PRN PRN Reason: Constipation Docusate Sodium (Colace) 100 mg PO BID PRN PRN Reason: Constipation Ferrous Sulfate (Ferrous Sulfate) 325 mg PO DAILY [facility] Last Admin: 02/07/17 09:06 Dose: 325 mg Fluoxetine HCl (Prozac) 20 mg PO DAILY [facility] Last Admin: 02/07/17 09:06 Dose: 20 mg Hydromorphone HCl (Dilaudid) 0.25 mg IVPUSH Q2H PRN PRN Reason: Pain (severe 7-10) Hydromorphone HCl (Dilaudid) 0.25 mg IVPUSH Q2H PRN PRN Reason: Pain (severe 7-10) Sodium Chloride (Normal Saline) 1,000 mls @ 125 mls/hr IV ASDIRECTED [facility] Last Admin: 02/07/17 02:34 Dose: 125 mls/hr Promethazine HCl 12.5 mg/ (Sodium Chloride) 50.5 mls @ 100 mls/hr IV Q6H PRN PRN Reason: Nausea/Vomiting Lorazepam (Ativan) 1 mg IV Q6H PRN PRN Reason: Nausea/Vomiting Lorazepam (Ativan) 0.5 mg PO BID [facility] Last Admin: 02/07/17 09:06 Dose: 0.5 mg Ondansetron HCl (Zofran) 4 mg IV Q6H PRN PRN Reason: Nausea/Vomiting Polyethylene Glycol (Miralax) 17 gm PO DAILY PRN PRN Reason: Constipation Quetiapine Fumarate (Seroquel) 25 mg PO BEDTIME [facility] Last Admin: 02/06/17 21:38 Dose: 25 mg Senna/Docusate Sodium (Senna Plus) 1 tab PO BID PRN PRN Reason: Constipation Sodium Chloride (Saline Flush) 10 ml FLUSH ASDIRECTED PRN PRN Reason: Keep Vein Open Last Admin: 02/05/17 15:27 Dose: 10 ml Temazepam (Restoril) 15 mg PO BEDTIME PRN PRN Reason: Sleep *Q Meaningful Use (DIS) - VTE *Q VTE Criteria *Q: - Stroke *Q Stroke Criteria *Q: - AMI *Q AMI Criteria *Q:
== END 2017-02-07 11:15 | disposition home or self-care (01) | DRG 812 ==
LOC: JD.ED 14:19 → JD.ICU 17:40 → JD.MS 02-06 14:43
PROVIDERS: ADMIT Internal Medicine; ATTEND Internal Medicine
DX: T45.0X2A Poisoning by antiallergic and antiemetic drugs, intentional self-harm, initial encounter (principal); F32.3 Major depressive disorder, single episode, severe with psychotic features; R45.851 Suicidal ideations; R00.0 Tachycardia, unspecified; F41.9 Anxiety disorder, unspecified; Z88.8 Allergy status to other drugs, medicaments and biological substances; J45.909 Unspecified asthma, uncomplicated; D64.9 Anemia, unspecified; Z87.891 Personal history of nicotine dependence; F29 Unspecified psychosis not due to a substance or known physiological condition; F43.10 Post-traumatic stress disorder, unspecified
CPT/HCPCS: 36415; 80048; 80053; 80306; 83735; 84703; 85025; 93005; 96360; 96361; 99285; 99285-25; A9270-GY; G0480; J7040; J7050

== ENCOUNTER 2017-03-07 01:53 | Emergency (ER) | payer BC ==
[2017-03-07] MEDS ORDERED: HYDROmorphone 0.5 MG/0.5 ML Syringe IVPUSH ONE (02:21)
[2017-03-07] MEDS ORDERED: Metoclopramide 10 MG/2 ML SDV IVPUSH ONE (02:21)
--- NOTE | 2017-03-07 02:25 | EDM.PDOC ---
ED HPI GENERAL MEDICAL PROBLEM - General Chief Complaint: Abdominal Pain Stated Complaint: ABDOMINAL PAIN Time Seen by Provider: 03/07/17 02:20 Source of Information: Reports: Patient, Other (friend) History Limitations: Reports: No Limitations - History of Present Illness INITIAL COMMENTS - FREE TEXT/NARRATIVE: 21-year-old female presents to the ED with a partially 18 hour history of diffuse epigastric upper abdominal pain. Does not seem to radiate through to her back. Associated nausea without any vomiting. Has limited ability to eat much of anything today due to the pain in her stomach. That much alcohol use. No history to suggest peptic ulcer disease. She's taken one Motrin 200 mg strength today with no relief of the discomfort. States her bowel function has been fairly regular. Denies any possibility of with last menstrual period 2 weeks ago. No previous abdominal surgery. Pain is constant but does have a colicky component. Early shingles the pain is 7-8/10. Seems to be getting worse rather than better. Onset: Gradual Onset Date: 03/06/17 Onset Time: 09:30 Duration: Hour(s):, Getting Worse Location: Reports: Abdomen (Epigastrium and right upper quadrant.) Quality: Reports: Ache, Burning, Pressure, Stabbing Severity: Moderate Improves with: Reports: None Worsens with: Reports: Other (Eating) Context: Denies: Activity, Exercise, Lifting, Sick Contact, Trauma Associated Symptoms: Reports: Fever/Chills, Loss of Appetite, Nausea/Vomiting. Denies: Confusion, Chest Pain, Cough, cough w sputum, Diaphoresis (Chills with no fever), Headaches, Malaise, Rash (Nausea with no), Seizure, Shortness of Breath, Syncope Treatments ARCHIVES DIRECTOR: Reports: NSAIDS (Took one 200 mg tablet of Motrin earlier yesterday morning with no relief.) Bilateral Upper Abdominal Pain Score (Numeric/FACES): 8 - Related Data Allergies Allergy/AdvReac Type Severity Reaction Status Date / Time isopropyl alcohol Allergy Hives Verified 03/07/17 02:02 Home Meds: Home Meds Ferrous Sulfate [Iron] 325 mg PO DAILY 11/25/16 [History] FLUoxetine [PROzac] 20 mg PO DAILY #30 cap 02/07/17 [Rx] LORazepam [Ativan] 0.5 mg PO BID #15 tablet 05/05/17 [Rx] QUEtiapine [SEROquel] 25 mg PO BEDTIME #30 tablet 02/07/17 [Rx] Polyethylene Glycol 3350 [MiraLAX] 17 gm PO DAILY #1 cont 03/07/17 [Rx] Past Medical History - Past Health History Medical/Surgical History: Denies Medical/Surgical History HEENT History: Reports: Impaired Vision Respiratory History: Reports: Asthma Genitourinary History: Reports: UTI, Recurrent TMH 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 OB/BYN History: A0 Neurological History: Reports: Concussion, Migraines Psychiatric History: Reports: Anxiety, Depression, Panic Attack, Suicide Attempt Hematologic History: Reports: Anemia - Past Surgical History HEENT Surgical History: Reports: None Social & Family History - Family History Family Medical History: Noncontributory - Tobacco Use Smoking Status *Q: Never Smoker Used Tobacco, but Quit: No Month Tobacco Last Used: 2013 Second Hand Smoke Exposure: Yes - Caffeine Use Caffeine Use: Reports: None Caffeine Use Comment: Just this admission - Alcohol Use Days Per Week of Alcohol Use: 0 - Recreational Drug Use Recreational Drug Use: No Recreational Drug Type: Reports: Marijuana/Hashish - Living Situation & Occupation Living situation: Reports: Single Occupation: Unemployed ED ROS GENERAL - Review of Systems Review Of Systems: See Below Constitutional: Reports: Malaise, Weakness, Fatigue, Decreased Appetite. Denies : Fever, Chills, Weight Loss HEENT: Reports: No Symptoms Respiratory: Reports: No Symptoms Cardiovascular: Reports: No Symptoms Endocrine: Reports: No Symptoms GI/Abdominal: Reports: Abdominal Pain (See history of present illness), Decreased Appetite, Nausea. Denies: Constipation, Diarrhea, Difficulty Swallowing, Flatus, Hematochezia, Melena, Mucous in Stool : Reports: No Symptoms Musculoskeletal: Reports: No Symptoms Skin: Reports: No Symptoms Neurological: Reports: No Symptoms Psychiatric: Reports: No Symptoms Hematologic/Lymphatic: Reports: No Symptoms Immunologic: Reports: No Symptoms ED EXAM, GI/ABD - Physical Exam Exam: See Below Exam Limited By: No Limitations General Appearance: Alert, WD/WN, Mild Distress Eyes: Bilateral: Normal Appearance (Slightly pallid) Throat/Mouth: Normal Inspection, Normal Lips, Normal Teeth, Normal Oropharynx Head: Atraumatic, Normocephalic Neck: Normal Inspection, Supple, Non-Tender, Full Range of Motion. No: Carotid Bruit, Lymphadenopathy (L), Lymphadenopathy (R) Respiratory/Chest: No Respiratory Distress, Lungs Clear, Normal Breath Sounds, No Accessory Muscle Use Cardiovascular: Normal Peripheral Pulses, Regular Rate, Rhythm, No Edema, No Gallop, No Murmur GI/Abdominal: Hyperactive Bowel Sounds (Mildly hyperactive bowel sounds.), Tympanic Bowel Sounds (Typically to percussion throughout the abdomen.), Other ( Probable right hemicolon.). No: Guarding, Rebound, Rigidity, McBurney's Sign, Pereira's Sign Back Exam: Normal Inspection. No: Full Range of Motion, CVA Tenderness (L), CVA Tenderness (R) Extremities: Normal Inspection, Normal Range of Motion, Non-Tender, No Pedal Edema Neurological: Alert, Oriented, CN II-XII Intact, Normal Cognition Psychiatric: Normal Affect, Normal Mood Skin Exam: Warm, Dry, Intact, Normal Color, No Rash Course - Vital Signs Last Recorded V/S: Last Vital Signs Temp 36.5 C 03/07/17 02:04 Pulse 82 03/07/17 02:04 Resp 16 03/07/17 02:04 BP 150/89 H 03/07/17 02:04 Pulse Ox 99 03/07/17 02:04 - Orders/Labs/Meds Orders: Active Orders 24 hr Category Date Time Status Abdomen 1V Flat [CR] Stat Exams 03/07/17 02:22 Taken URINALYSIS W/MICROSCOPIC [UA W/MICROSCOPIC] [URIN] Stat Lab 03/07/17 02:21 Uncollected Dextrose 5%-0.9% NaCl [Dextrose 5%-Normal Saline] 1,000 Med 03/07/17 02:30 Active ml IV ASDIRECTED Medication Orders Dextrose/Sodium Chloride (Dextrose 5%-Normal Saline) 1,000 mls @ 999 mls/hr IV ASDIRECTED SELMA Last Admin: 03/07/17 02:41 Dose: 999 mls/hr Labs: Laboratory Tests 03/07/17 03/07/17 03/07/17 Range/Units 02:30 02:30 02:30 WBC 8.79 (3.98-10.04) K/mm3 RBC 4.44 (3.98-5.22) M/mm3 Hgb 12.8 (11.2-15.7) gm/L Hct 38.4 (34.1-44.9) % MCV 86.5 (79.4-94.8) fl MCH 28.8 (25.6-32.2) pg MCHC 33.3 (32.2-35.5) g/dl RDW Std Deviation 40.5 (36.4-46.3) fL Plt Count 295 (182-369) K/mm3 MPV 11.1 (9.4-12.3) fl Neutrophils % (Manual) 50 (40-60) % Band Neutrophils % 0 (0-10) % Lymphocytes % (Manual) 40 (20-40) % Atypical Lymphs % 0 % Monocytes % (Manual) 6 (2-10) % Eosinophils % (Manual) 2 (0.7-5.8) % Basophils % (Manual) 2 H (0.1-1.2) Platelet Estimate Adequate Plt Morphology Comment Normal RBC Morph Comment Normal Sodium 142 (136-145) mEq/L Potassium 3.9 (3.5-5.1) mEq/L Chloride 105 (98-107) mEq/L Carbon Dioxide 26 (21-32) mEq/L Anion Gap 14.9 (5-15) BUN 15 (7-18) mg/dL Creatinine 0.9 (0.55-1.02) mg/dL Est Cr Clr Drug Dosing 79.19 mL/min Estimated GFR (MDRD) > 60 (>60) mL/min BUN/Creatinine Ratio 16.7 (14-18) Glucose 109 H (74-106) mg/dL Calcium 9.4 (8.5-10.1) mg/dL Total Bilirubin 0.2 (0.2-1.0) mg/dL AST 34 (15-37) U/L ALT 55 (14-59) U/L Alkaline Phosphatase 171 H (46-116) U/L C-Reactive Protein < 0.2 (<1.0) mg/dL Total Protein 8.2 (6.4-8.2) g/dl Albumin 4.0 (3.4-5.0) g/dl Globulin 4.2 gm/dL Albumin/Globulin Ratio 1.0 (1-2) Lipase 120 (73-393) U/L HCG, Qual Negative (NEGATIVE) Meds: Medications Generic Name Dose Route Start Last Admin Trade Name Freq PRN Reason Stop Dose Admin Dextrose/Sodium Chloride 1,000 mls @ 999 mls/hr 03/07/17 02:30 03/07/17 02:41 Dextrose 5%-Normal Saline IV 999 mls/hr ASDIRECTED SELMA Administration Discontinued Medications Generic Name Dose Route Start Last Admin Trade Name Capri PRN Reason Stop Dose Admin Hydromorphone HCl 0.5 mg 03/07/17 02:21 03/07/17 02:34 Dilaudid IVPUSH 03/07/17 02:22 0.5 mg ONETIME ONE Administration Ketorolac Tromethamine 30 mg 03/07/17 02:30 Toradol IVPUSH ONETIME SELMA Magnesium Citrate 210 ml 03/07/17 03:12 Citrate Of Magnesia PO 03/07/17 03:13 ONETIME ONE Metoclopramide HCl 7.5 mg 03/07/17 02:21 03/07/17 02:34 Reglan IVPUSH 03/07/17 02:22 7.5 mg ONETIME ONE Administration - Radiology Interpretation Free Text/Narrative:: 21-year-old female attends the ED with complaint of epigastric upper elbow discomfort for the last 18 hours. Nausea with no vomiting. Currently in normal bowel movement yesterday. Examination reveals tympany throughout the abdomen with no obvious significant distention. Palpable right hemicolon. No guarding rebound tenderness. No evidence of gallbladder-related illness. Suspect constipation is the likely culprit. Plan routine labs will be done to include a serum lipase and a urinalysis. Last menstrual period was 2 weeks ago (will also be done. She's not using any form of contraception at present. Only other will be done after confirmation of systems negative. Time I will give her D5 normal saline at open. Given Dilaudid 0.5 mg IV with Toradol 30 mg IV and Reglan 7.5 mg IV for pain and nausea relief. - Re-Assessments/Exams Free Text/Narrative Re-Assessment/Exam: 03/07/17 03:08 KUB reveals increased stool throughout the right hemicolon up to the hepatic flexure. Air distends the rest of the colon and is empty of stool. Lab work shows a white count of 8.79 with that 50% neutrophils and no bands. Hemoglobin 12.8 hematocrit of 38.4. Platelets normal 295,000 chemistry is normal other than a mildly elevated alk phosphatase at 171. Lipase is negative beta hCG was negative. 03/07/17 03:09 plan she will be given Citroma 7 ounces by mouth with 5 ounces of juice of choice to provide bowel cleanse. This should relieve her pain completely over the next 2-4 hours. Suggest using MiraLax powder 17 g daily as her current medications are causing her constipation problems. Seroquel and iron supplementation and perhaps Prozac as well. Followup with personal physician if any further problems occur or return to the ED if abdominal pain is not markedly improved after bowel cleanse. Departure - Departure Time of Disposition: 03:13 Disposition: Home, Self-Care 01 Condition: fair Clinical Impression: Constipation by delayed colonic transit Abdominal pain Qualifiers: Abdominal location: right upper quadrant Qualified Code(s): R10.11 - Right upper quadrant pain - Discharge Information Prescriptions: Polyethylene Glycol 3350 [MiraLAX] 17 gm PO DAILY #1 cont Referrals: Vimal Caruso MD [Primary Care Provider] - Forms: ED Department Discharge Additional Instructions: Evaluation in the emergency department today in regards to persistent upper abdominal pain for the last 18 hours or more. No associated mild nausea without any vomiting. Poor appetite. Examination revealed no fever and a benign abdominal examination other than increased air throughout the colon on palpation and a palpable right hemicolon. X-ray of the abdomen confirms a large amount of stool throughout the right hemicolon up underneath the liver which is causing her pain. Lab tests done were all within normal limits. Treatment is therefore bowel cleanse with Citroma 4 magnesium citrate. Suggest 7 ounces mixed with 5 ounces of juice of choice taken by mouth once. This will take one to 3 hours to start to work and bowels were move 3 or 4 times off and ending in a bit of diarrhea today. This should relieve your abdominal pain completely. Constipation is occurred secondary to the medications you're currently taking. Iron and Seroquel particularly slow the bowel movement down and are frequently associated with the development of constipation problems. Suggest use of MiraLax powder 17 g one scoop daily as it has no taste and it will promote regular bowel function and prevent similar occurrence from occurring. Return to medical care if not markedly improved after bowel cleanse. - My Orders Last 24 Hours: My Active Orders 03/07/17 02:21 URINALYSIS W/MICROSCOPIC [UA W/MICROSCOPIC] [URIN] Stat 03/07/17 02:22 Abdomen 1V Flat [CR] Stat 03/07/17 02:30 Dextrose 5%-0.9% NaCl [Dextrose 5%-Normal Saline] 1,000 ml IV ASDIRECTED - Assessment/Plan Last 24 Hours: My Active Orders 03/07/17 02:21 URINALYSIS W/MICROSCOPIC [UA W/MICROSCOPIC] [URIN] Stat 03/07/17 02:22 Abdomen 1V Flat [CR] Stat 03/07/17 02:30 Dextrose 5%-0.9% NaCl [Dextrose 5%-Normal Saline] 1,000 ml IV ASDIRECTED
[2017-03-07] MEDS ORDERED: Dextrose 5%-0.9% NaCl 1,000 ML IV SCH (02:30)
[2017-03-07] MEDS ORDERED: Ketorolac 30 MG/ML SDV IVPUSH SCH (02:30)
[2017-03-07] MEDS ORDERED: Magnesium Citrate Solution 296 ML Bottle PO ONE (03:12)
[2017-03-07 03:37] VITALS: BP 120/67
--- NOTE | 2017-03-07 08:03 | CR ---
Abdomen: Supine view of the abdomen was obtained. Comparison: No previous abdominal x-ray. Bowel gas pattern appears normal. No abnormal calcifications or soft tissue abnormality is seen. Bony structures are unremarkable. Impression: 1. No abnormality is identified on supine abdominal x-ray. Diagnostic code #1
== END 2017-03-07 03:27 | disposition home or self-care (01) ==
LOC: JD.ED 01:53
DX: K59.01 Slow transit constipation (principal); R10.11 Right upper quadrant pain; F41.0 Panic disorder [episodic paroxysmal anxiety]; F32.9 Major depressive disorder, single episode, unspecified; D64.9 Anemia, unspecified; Z79.899 Other long term (current) drug therapy; Z88.8 Allergy status to other drugs, medicaments and biological substances
CPT/HCPCS: 36415; 74000; 80053; 83690; 84703; 85025; 86140; 96361; 96374; 96375; 99284; A9270; J1170; J2765; J7042

== ENCOUNTER 2017-05-20 13:56 | Emergency (ER) | payer BC ==
[2017-05-20 14:08] VITALS: BP 146/102
--- NOTE | 2017-05-20 14:53 | EDM.PDOC ---
ED HPI GENERAL MEDICAL PROBLEM - General Chief Complaint: Gastrointestinal Problem Stated Complaint: VOMITING WEAK Time Seen by Provider: 05/20/17 14:34 Source of Information: Reports: Patient History Limitations: Reports: No Limitations - History of Present Illness INITIAL COMMENTS - FREE TEXT/NARRATIVE: Patient is a 21 y/o female who presents to the E.D. complaining of n/v for the past three days. States she has had a poor appetite but notes still eating and drinking fluids. Denies recent sick exposure. Noted intermittent blood within her vomit described as scant. States she has been under a lot more stress recently with kids ands and the fathers of her kids. Has history of depression and anxiety. States with recent stress has been lacking motivation and sleeping alot. Denies f/c, sore throat, difficulty swallowing, abdominal pain, acid reflux, painful urination, suicidial idieations, diarrhea, excessive alcohol use , blood in stool, or any additional complaints. 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 OB/BYN History: A0 Neurological History: Reports: Concussion, Migraines Psychiatric History: Reports: Anxiety, Depression, Panic Attack, Suicide Attempt Hematologic History: Reports: Anemia - Past Surgical History HEENT Surgical History: Reports: None Oncologic Surgical History: Reports: Bone Marrow Aspiration Social & Family History - Family History Family Medical History: Noncontributory - Tobacco Use Smoking Status *Q: Never Smoker Used Tobacco, but Quit: No Month Tobacco Last Used: 2013 Second Hand Smoke Exposure: Yes - Caffeine Use Caffeine Use: Reports: None Caffeine Use Comment: Just this admission - Alcohol Use Days Per Week of Alcohol Use: 0 - Recreational Drug Use Recreational Drug Use: Yes Recreational Drug Type: Reports: Marijuana/Hashish - Living Situation & Occupation Living situation: Reports: Single Occupation: Unemployed ED ROS GENERAL - Review of Systems Review Of Systems: ROS reveals no pertinent complaints other than HPI. Constitutional: Reports: Malaise, Decreased Appetite. Denies: Fever, Chills HEENT: Reports: No Symptoms Respiratory: Reports: No Symptoms Cardiovascular: Reports: No Symptoms GI/Abdominal: Reports: Hematemesis, Nausea, Vomiting. Denies: Abdominal Pain, Anorexia, Black Stool, Bloody Stool, Constipation, Diarrhea, Decreased Appetite , Difficulty Swallowing, Hematochezia, Stool Incontinence : Reports: No Symptoms Musculoskeletal: Reports: No Symptoms Neurological: Reports: No Symptoms ED EXAM, GENERAL - Physical Exam Exam: See Below Exam Limited By: No Limitations General Appearance: Alert, WD/WN, No Apparent Distress Eye Exam: Bilateral Eye: PERRL Ears: Hearing Grossly Normal Nose: Normal Inspection Throat/Mouth: Normal Voice, No Airway Compromise Neck: Normal Inspection, Supple Respiratory/Chest: No Respiratory Distress, Lungs Clear, Normal Breath Sounds, No Accessory Muscle Use Cardiovascular: Normal Peripheral Pulses, Regular Rate, Rhythm, No Murmur GI/Abdominal: Normal Bowel Sounds, Soft, Non-Tender, No Distention Back Exam: Normal Inspection Extremities: Normal Inspection Neurological: Alert, Oriented, CN II-XII Intact, Normal Cognition, No Motor/ Sensory Deficits Psychiatric: Normal Affect, Normal Mood Skin Exam: Warm, Dry, Intact, Normal Color Course - Vital Signs Last Recorded V/S: Last Vital Signs Temp 98.7 F 05/20/17 14:04 Pulse 120 H 05/20/17 14:04 Resp 16 05/20/17 14:04 BP 146/102 H 05/20/17 14:04 Pulse Ox 100 05/20/17 14:04 - Orders/Labs/Meds Labs: Laboratory Tests 05/20/17 05/20/17 05/20/17 Range/Units 15:07 15:07 15:07 WBC 9.40 (3.98-10.04) K/mm3 RBC 4.57 (3.98-5.22) M/mm3 Hgb 13.4 (11.2-15.7) gm/L Hct 40.4 (34.1-44.9) % MCV 88.4 (79.4-94.8) fl MCH 29.3 (25.6-32.2) pg MCHC 33.2 (32.2-35.5) g/dl RDW Std Deviation 45.4 (36.4-46.3) fL Plt Count 265 (182-369) K/mm3 MPV 11.3 (9.4-12.3) fl Neut % (Auto) 71.0 (34.0-71.1) % Lymph % (Auto) 20.0 (19.3-51.7) % [place] % (Auto) 8.2 (4.7-12.5) % Eos % (Auto) 0.3 L (0.7-5.8) Baso % (Auto) 0.4 (0.1-1.2) % Neut # (Auto) 6.67 H (1.56-6.13) K/mm3 Lymph # (Auto) 1.88 (1.18-3.74) K/mm3 [place] # (Auto) 0.77 H (0.24-0.36) K/mm3 Eos # (Auto) 0.03 L (0.04-0.36) K/mm3 Baso # (Auto) 0.04 (0.01-0.08) K/mm3 Sodium 142 (136-145) mEq/L Potassium 3.3 L (3.5-5.1) mEq/L Chloride 103 (98-107) mEq/L Carbon Dioxide 28 (21-32) mEq/L Anion Gap 14.3 (5-15) BUN 11 (7-18) mg/dL Creatinine 1.0 (0.55-1.02) mg/dL Est Cr Clr Drug Dosing TNP Estimated GFR (MDRD) > 60 (>60) mL/min BUN/Creatinine Ratio 11.0 L (14-18) Glucose 79 (74-106) mg/dL Calcium 9.7 (8.5-10.1) mg/dL Total Bilirubin 0.7 (0.2-1.0) mg/dL AST 18 (15-37) U/L ALT 33 (14-59) U/L Alkaline Phosphatase 103 (46-116) U/L C-Reactive Protein < 0.2 (<1.0) mg/dL Total Protein 8.2 (6.4-8.2) g/dl Albumin 4.6 (3.4-5.0) g/dl Globulin 3.6 gm/dL Albumin/Globulin Ratio 1.3 (1-2) Lipase 88 (73-393) U/L HCG, Qual Negative (NEGATIVE) Meds: Medications Discontinued Medications Generic Name Dose Route Start Last Admin Trade Name Ortizq PRN Reason Stop Dose Admin Pantoprazole Sodium 40 mg 05/21/17 14:50 Protonix PO 05/21/17 14:51 ONETIME ONE Pantoprazole Sodium 40 mg 05/20/17 15:12 05/20/17 15:14 Protonix PO 05/20/17 15:13 40 mg ONETIME STA Administration Pantoprazole Sodium Confirm 05/20/17 15:14 05/20/17 15:15 Protonix Administered 05/20/17 15:15 Not Given Dose 40 mg .ROUTE .STK-MED ONE - Re-Assessments/Exams Free Text/Narrative Re-Assessment/Exam: Ordered CBC, C14, CRP, Lipase, and serum hcg. 05/20/17 16:12 Labs reviewed: White blood cell count 9.40, hemoglobin 13.4, neutrophil percentage 71, neutrophil #6.67, sodium 142, potassium 3.3, creatinine 1.0, CRP less than 0.2, lipase 80, hCG was negative. Reassessment, patient continues to have no symptoms. No additional vomiting noted. Will discharge patient home with instructions as documented. Prescription for zofran provided. Departure - Departure Time of Disposition: 16:14 Disposition: Home, Self-Care 01 Condition: Good Clinical Impression: Bloody emesis Qualifiers: Nausea presence: with nausea Qualified Code(s): K92.0 - Hematemesis Nausea & vomiting Qualifiers: Vomiting type: hematemesis Qualified Code(s): K92.0 - Hematemesis - Discharge Information Prescriptions: Ondansetron [Zofran ODT] 4 mg PO Q6H PRN #12 tab.dis PRN Reason: Nausea/Vomiting Instructions: Nausea, Adult, Nausea and Vomiting, Adult Referrals: Vimal Caruso MD [Primary Care Provider] - Forms: ED Department Discharge Additional Instructions: Labs did not reveal any concerning findings. Examination did not elicit any pertinent positives that suggest further testing required at this point. Will have you take Prilosec 40 mg half-hour prior to breakfast every day for the next 2 weeks. During this time please follow up with PCP for reevaluation. Refrain from any foods or drinks that may aggravate for nausea/vomiting. No drinking of any alcohol. If you do have any additional episodes of blood within your emesis please take a picture so we can visualize. You may require EGD to further delineate cause of bleeding. Return to ED for any new or worsening symptoms.
[2017-05-20] MEDS ORDERED: Pantoprazole 40 MG Tab.CR PO STA (15:12)
[2017-05-20] MEDS ORDERED: Pantoprazole 40 MG Tab.CR ONE (15:14)
[2017-05-21] MEDS ORDERED: Pantoprazole 40 MG Tab.CR PO ONE (14:50)
== END 2017-05-20 16:30 | disposition home or self-care (01) ==
LOC: JD.ED 13:56
DX: K92.0 Hematemesis (principal); J45.909 Unspecified asthma, uncomplicated; F41.0 Panic disorder [episodic paroxysmal anxiety]; F32.9 Major depressive disorder, single episode, unspecified; Z87.440 Personal history of urinary (tract) infections; Z98.890 Other specified postprocedural states; Z88.8 Allergy status to other drugs, medicaments and biological substances; Z86.2 Personal history of diseases of the blood and blood-forming organs and certain disorders involving the immune mechanism
CPT/HCPCS: 36415; 80053; 83690; 84703; 85025; 86140; 99283; A9270

== ENCOUNTER 2017-05-30 09:40 | Emergency (ER) | payer BC ==
--- NOTE | 2017-05-30 10:47 | EDM.PDOC ---
ED HPI GENERAL MEDICAL PROBLEM - General Chief Complaint: Back Pain or Injury Stated Complaint: BACK PAIN Time Seen by Provider: 05/30/17 10:46 - History of Present Illness INITIAL COMMENTS - FREE TEXT/NARRATIVE: 21-year-old female presents emergency room with left-sided low back pain. Patient has had this low back pain for for 5 days. She's developed some nausea early on with this followed by some left-sided abdominal pain after vomiting several times. Patient is not aware of significant burning or frequency with urination. She denies being . She denies fevers or chills. At this point the patient has having difficulty keeping down solid foods or fluids. 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 OB/BYN History: A0 Neurological History: Reports: Concussion, Migraines Psychiatric History: Reports: Anxiety, Depression, Panic Attack, Suicide Attempt Hematologic History: Reports: Anemia - Past Surgical History HEENT Surgical History: Reports: None Oncologic Surgical History: Reports: Bone Marrow Aspiration Social & Family History - Family History Family Medical History: Noncontributory - Tobacco Use Smoking Status *Q: Unknown Ever Smoked Used Tobacco, but Quit: No Month Tobacco Last Used: 2013 Second Hand Smoke Exposure: Yes - Caffeine Use Caffeine Use: Reports: None Caffeine Use Comment: Just this admission - Alcohol Use Days Per Week of Alcohol Use: 0 - Recreational Drug Use Recreational Drug Use: Yes Drug Use in Last 12 Months: No Recreational Drug Type: Reports: Marijuana/Hashish - Living Situation & Occupation Living situation: Reports: Single Occupation: Unemployed ED ROS GENERAL - Review of Systems Review Of Systems: See Below Constitutional: Reports: No Symptoms, Weakness, Fatigue. Denies: Fever, Chills HEENT: Reports: No Symptoms Respiratory: Reports: No Symptoms Cardiovascular: Reports: No Symptoms GI/Abdominal: Reports: Abdominal Pain, Nausea, Vomiting. Denies: Constipation, Diarrhea : Reports: Flank Pain, Pain. Denies: Discharge, Frequency, Hematuria, Urgency Musculoskeletal: Reports: No Symptoms Skin: Reports: No Symptoms Neurological: Reports: No Symptoms ED EXAM,LOWER BACK PAIN/INJURY - Physical Exam Exam: See Below Exam Limited By: No Limitations General Appearance: Alert, No Apparent Distress Head: Atraumatic, Normocephalic Neck: Normal Inspection, Supple, Non-Tender, Full Range of Motion Respiratory/Chest: No Respiratory Distress, Lungs Clear, Normal Breath Sounds Cardiovascular: Regular Rate, Rhythm, No Edema, No Murmur GI/Abdominal: Normal Bowel Sounds, Soft, Other (Significant left-sided and suprapubic discomfort worsen perhaps a little bit with palpation no rigidity rebound or guarding noted) Back Exam: Normal Inspection, CVA Tenderness (L). No: CVA Tenderness (R), Paraspinal Tenderness, Vertebral Tenderness Extremities: Normal Inspection, No Pedal Edema Course - Vital Signs Last Recorded V/S: Last Vital Signs Temp 37.3 C 05/30/17 09:45 Pulse 105 H 05/30/17 09:45 Resp 16 05/30/17 09:45 BP 122/72 05/30/17 09:45 Pulse Ox 96 05/30/17 09:45 - Orders/Labs/Meds Orders: Active Orders 24 hr Category Date Time Status CULTURE URINE [RM] Stat Lab 05/30/17 09:55 Received Labs: Laboratory Tests 05/30/17 05/30/17 05/30/17 Range/Units 09:55 09:55 11:05 WBC 13.31 H (3.98-10.04) K/mm3 RBC 4.17 (3.98-5.22) M/mm3 Hgb 12.4 (11.2-15.7) gm/L Hct 36.8 (34.1-44.9) % MCV 88.2 (79.4-94.8) fl MCH 29.7 (25.6-32.2) pg MCHC 33.7 (32.2-35.5) g/dl RDW Std Deviation 44.2 (36.4-46.3) fL Plt Count 207 (182-369) K/mm3 MPV 11.2 (9.4-12.3) fl Neutrophils % (Manual) 87 H (40-60) % Band Neutrophils % 0 (0-10) % Lymphocytes % (Manual) 3 L (20-40) % Atypical Lymphs % 0 % Monocytes % (Manual) 10 (2-10) % Eosinophils % (Manual) 0 L (0.7-5.8) % Basophils % (Manual) 0 L (0.1-1.2) Platelet Estimate Adequate Plt Morphology Comment See note Hypochromasia 1+ slight Microcytosis 1+ slight RBC Morph Comment Abnormal Sodium (136-145) mEq/L Potassium (3.5-5.1) mEq/L Chloride (98-107) mEq/L Carbon Dioxide (21-32) mEq/L Anion Gap (5-15) BUN (7-18) mg/dL Creatinine (0.55-1.02) mg/dL Est Cr Clr Drug Dosing mL/min Estimated GFR (MDRD) (>60) mL/min BUN/Creatinine Ratio (14-18) Glucose (74-106) mg/dL Calcium (8.5-10.1) mg/dL Total Bilirubin (0.2-1.0) mg/dL AST (15-37) U/L ALT (14-59) U/L Alkaline Phosphatase (46-116) U/L Total Protein (6.4-8.2) g/dl Albumin (3.4-5.0) g/dl Globulin gm/dL Albumin/Globulin Ratio (1-2) Urine Color Yellow (Yellow) Urine Appearance Slt cloudy H (Clear) Urine pH 6.0 (5.0-8.0) Ur Specific [place] 1.025 (1.005-1.030) Urine Protein 2+ H (Negative) Urine Glucose (UA) Negative (Negative) Urine Ketones 3+ H (Negative) Urine Occult Blood 2+ H (Negative) Urine Nitrite Positive H (Negative) Urine Bilirubin Negative (Negative) Urine Urobilinogen 0.2 (0.2-1.0) Ur Leukocyte Esterase 2+ H (Negative) Urine RBC 50-75 H (0-5) /hpf Urine WBC Too numerous to cnt H (0-5) /hpf Ur Epithelial Cells 20-30 H (0-5) /hpf Urine Bacteria Moderate H (FEW) /hpf Urine Mucus Few (FEW) /hpf Urine HCG, Qual Negative (NEGATIVE) 05/30/ Range/Units 11:05 WBC (3.98-10.04) K/mm3 RBC (3.98-5.22) M/mm3 Hgb (11.2-15.7) gm/L Hct (34.1-44.9) % MCV (79.4-94.8) fl MCH (25.6-32.2) pg MCHC (32.2-35.5) g/dl RDW Std Deviation (36.4-46.3) fL Plt Count (182-369) K/mm3 MPV (9.4-12.3) fl Neutrophils % (Manual) (40-60) % Band Neutrophils % (0-10) % Lymphocytes % (Manual) (20-40) % Atypical Lymphs % % Monocytes % (Manual) (2-10) % Eosinophils % (Manual) (0.7-5.8) % Basophils % (Manual) (0.1-1.2) Platelet Estimate Plt Morphology Comment Hypochromasia Microcytosis RBC Morph Comment Sodium 136 (136-145) mEq/L Potassium 3.6 (3.5-5.1) mEq/L Chloride 102 (98-107) mEq/L Carbon Dioxide 23 (21-32) mEq/L Anion Gap 14.6 (5-15) BUN 11 (7-18) mg/dL Creatinine 0.9 (0.55-1.02) mg/dL Est Cr Clr Drug Dosing 82.07 mL/min Estimated GFR (MDRD) > 60 (>60) mL/min BUN/Creatinine Ratio 12.2 L (14-18) Glucose 83 (74-106) mg/dL Calcium 8.9 (8.5-10.1) mg/dL Total Bilirubin 1.0 (0.2-1.0) mg/dL AST 75 H (15-37) U/L ALT 104 H (14-59) U/L Alkaline Phosphatase 125 H (46-116) U/L Total Protein 7.5 (6.4-8.2) g/dl Albumin 3.7 (3.4-5.0) g/dl Globulin 3.8 gm/dL Albumin/Globulin Ratio 1.0 (1-2) Urine Color (Yellow) Urine Appearance (Clear) Urine pH (5.0-8.0) Ur Specific [place] (1.005-1.030) Urine Protein (Negative) Urine Glucose (UA) (Negative) Urine Ketones (Negative) Urine Occult Blood (Negative) Urine Nitrite (Negative) Urine Bilirubin (Negative) Urine Urobilinogen (0.2-1.0) Ur Leukocyte Esterase (Negative) Urine RBC (0-5) /hpf Urine WBC (0-5) /hpf Ur Epithelial Cells (0-5) /hpf Urine Bacteria (FEW) /hpf Urine Mucus (FEW) /hpf Urine HCG, Qual (NEGATIVE) Meds: Medications Discontinued Medications Generic Name Dose Route Start Last Admin Trade Name Freq PRN Reason Stop Dose Admin Lactated Ringer's 1,000 mls @ 999 mls/hr 05/30/17 10:53 05/30/17 11:10 Ringers, Lactated IV 05/30/17 11:53 999 mls/hr .BOLUS ONE Administration Ondansetron HCl 4 mg 05/30/17 10:53 05/30/17 11:10 Zofran IVPUSH 05/30/17 10:54 4 mg ONETIME ONE Administration - Re-Assessments/Exams Free Text/Narrative Re-Assessment/Exam: 05/30/17 10:57 Urinalysis is strongly suggestive of infectious process. The patient has had difficulties keeping solids or fluids down we'll start IV fluids and check a CBC and chemistries exam is consistent with early kidney infection however she is not having traditional UTI symptoms. 05/30/17 13:30 Patient received a liter of fluid is doing better and wants to go home. She will be discharged with a prescription for Cipro. She has Zofran at home Departure - Departure Time of Disposition: 13:30 Disposition: Home, Self-Care 01 Clinical Impression: UTI (urinary tract infection) Nausea and vomiting Qualifiers: Vomiting type: hematemesis Qualified Code(s): K92.0 - Hematemesis - Discharge Information Referrals: Vimal Caruso MD [Primary Care Provider] - Forms: ED Department Discharge Additional Instructions: Return to the emergency room with any questions problems or worsening symptoms. Follow-up in the clinic with your regular physician early this next week. Use your Zofran at home as needed push lots of fluids. You have been started on ciprofloxacin this is an antibiotic take one twice daily for a week until all gone. - My Orders Last 24 Hours: My Active Orders 05/30/17 09:55 CULTURE URINE [RM] Stat - Assessment/Plan Last 24 Hours: My Active Orders 05/30/17 09:55 CULTURE URINE [RM] Stat
[2017-05-30] MEDS ORDERED: Ondansetron 4 MG/2 ML SDV IVPUSH ONE (10:53)
[2017-05-30] MEDS ORDERED: Lactated Ringers 1,000 ML IV ONE (10:53)
[2017-05-30 14:33] VITALS: BP 132/78
== END 2017-05-30 14:05 | disposition home or self-care (01) ==
LOC: JD.ED 09:40
DX: N39.0 Urinary tract infection, site not specified (principal); K92.0 Hematemesis; J45.909 Unspecified asthma, uncomplicated; F41.0 Panic disorder [episodic paroxysmal anxiety]; Z86.2 Personal history of diseases of the blood and blood-forming organs and certain disorders involving the immune mechanism; Z87.440 Personal history of urinary (tract) infections; Z88.8 Allergy status to other drugs, medicaments and biological substances
CPT/HCPCS: 36415; 80053; 81001; 81025; 85025; 87086; 87088; 87186; 96361; 96374; 99283; J2405; J7120

== ENCOUNTER 2017-06-01 23:16 | Emergency (ER) | payer BC ==
--- NOTE | 2017-06-02 02:24 | EDM.PDOC ---
ED HPI GENERAL MEDICAL PROBLEM - General Chief Complaint: Genitourinary Problem Stated Complaint: LOWER BACK PAIN Time Seen by Provider: 06/02/17 01:59 Source of Information: Reports: Patient, Old Records, RN Notes Reviewed, Significant Other (Boyfriend) History Limitations: Reports: No Limitations - History of Present Illness INITIAL COMMENTS - FREE TEXT/NARRATIVE: The patient states that she developed bilateral flank and low back pain, along with lower abdominal pain on 05/20/2017. She denies having had urinary symptoms or fever, but she does report nausea and vomiting. She has been taking ibuprofen. Medical records indicate that the patient was seen in this ED 05/20/2017 with a complaint, at that time, of nausea and vomiting for 3 days. At that time, she had no complaint of flank, low back, or abdominal pain. She reported a lot of stress at home. Her oxygen saturation was noted be 100% on room air, and she was tachycardic at 120 bpm. A CBC, CMP, CRP, lipase were all unremarkable. A serum test was negative. The patient was discharged home with a prescription for Zofran. It was recommended that she start [id number] Prilosec. The patient then returned to the ED on 05/30/2017. At that time, she complained of left low back pain for 5 days, with associated nausea and emesis. She had developed left-sided abdominal pain after vomiting several times. She denied urinary symptoms. No fever or chills. A CBC was remarkable for a WBC elevated at 13.31 with 0% bandemia. A CMP was unremarkable. Her urinalysis showed significant contamination, but likely UTI. She was prescribed ciprofloxacin and [place]. The urine culture from that visit grew >100,000 CFU/ml E. coli, multiply susceptible, including to ciprofloxacin. The patient now returns, stating that her symptoms are worse, with pain spreading to her upper abdomen and chest. She has not had a fever, and denies having urinary symptoms. 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 Psychiatric History: Reports: Anxiety, Depression, Panic Attack, Suicide Attempt - Past Surgical History HEENT Surgical History: Reports: Oral Surgery Oncologic Surgical History: Reports: Bone Marrow Aspiration (benign) Social & Family History - Family History Family Medical History: Noncontributory - Tobacco Use Smoking Status *Q: Former Smoker Month Tobacco Last Used: 2013 Second Hand Smoke Exposure: Yes - Caffeine Use Caffeine Use: Reports: Soda Caffeine Use Comment: Just this admission - Alcohol Use Alcohol Use History: Yes Days Per Week of Alcohol Use: 0 Alcohol Use Frequency: Socially - Recreational Drug Use Recreational Drug Use: Yes Drug Use in Last 12 Months: No Recreational Drug Type: Reports: Marijuana/Hashish - Living Situation & Occupation Living situation: Reports: Single, with Significant Other (Boyfriend) Occupation: Student (High school) ED ROS GENERAL - Review of Systems Review Of Systems: See Below Constitutional: Reports: No Symptoms HEENT: Reports: No Symptoms Respiratory: Reports: No Symptoms Cardiovascular: Reports: No Symptoms Endocrine: Reports: No Symptoms GI/Abdominal: Reports: Nausea, Vomiting : Reports: No Symptoms, Other (Low back/flack/suprapubic pain) Musculoskeletal: Reports: No Symptoms Skin: Reports: No Symptoms Neurological: Reports: No Symptoms Psychiatric: Reports: No Symptoms Hematologic/Lymphatic: Reports: No Symptoms Immunologic: Reports: No Symptoms ED EXAM, RENAL/ - Physical Exam Exam: See Below Exam Limited By: No Limitations General Appearance: Alert, WD/WN, No Apparent Distress Eye Exam: Bilateral Eye: Normal Inspection Ears: Normal External Exam, Hearing Grossly Normal Nose: Normal Inspection, No Blood Throat/Mouth: Normal Inspection, Normal Lips, Normal Voice, No Airway Compromise Head: Atraumatic, Normocephalic Neck: Normal Inspection, Full Range of Motion Respiratory/Chest: No Respiratory Distress, Lungs Clear, Normal Breath Sounds, No Accessory Muscle Use Cardiovascular: Normal Peripheral Pulses, Regular Rate, Rhythm, No Gallop, No JVD, No Murmur, No Rub GI/Abdominal: Normal Bowel Sounds, Soft, No Organomegaly, No Distention, No Abnormal Bruit, No Mass, Other (Suprapubic only) (Female) Exam: Deferred Rectal (Female) Exam: Deferred Back Exam: Normal Inspection, Full Range of Motion, CVA Tenderness (L), CVA Tenderness (R) Extremities: Normal Inspection, Normal Range of Motion, No Pedal Edema, Normal Capillary Refill Neurological: Alert, Oriented, Normal Cognition, No Motor/Sensory Deficits Psychiatric: Normal Affect Skin Exam: Warm, Dry, Intact, Normal Color, No Rash Lymphatic: No Adenopathy Course - Vital Signs Last Recorded V/S: Last Vital Signs Temp 36.6 C 06/02/17 03:11 Pulse 99 06/02/17 03:11 Resp 16 06/02/17 03:11 BP 119/70 06/02/17 03:11 Pulse Ox 97 06/02/17 03:11 - Re-Assessments/Exams Free Text/Narrative Re-Assessment/Exam: 06/02/17 02:20 The urine culture from 05/30/2017 is growing >100,000 CFU of Escherichia coli, multiply susceptible, including to ciprofloxacin. While the patient states that she is feeling worse than 2 days ago, I am not recommending any change in management. While the patient has not had a fever, her back pain suggest pyelonephritis, and pyelonephritis should be treated with a fluoroquinolone, despite the multiple susceptibility on the urine culture results. I explained to the patient why pyelonephritis may take longer to treat then ordinary cystitis, and I am recommending patience. Departure - Departure Time of Disposition: 02:22 Disposition: Home, Self-Care 01 Condition: Fair Clinical Impression: Pyelonephritis - Discharge Information Instructions: Pyelonephritis, Adult, [id number] Referrals: Vimal Caruso MD [Primary Care Provider] - Forms: ED Department Discharge Additional Instructions: You were seen in the emergency room for persistent abdominal pain, back pain, nausea, and vomiting. The urine culture obtained 05/30/2017 is growing Escherichia coli, susceptible to ciprofloxacin. This means that you are on the correct antibiotic. Your symptoms may take several days to improve. We recommend that you continue to take ciprofloxacin every 12 hours, as prescribed. Finish the entire prescription. Stay adequately hydrated. Take [id number] ibuprofen as needed for discomfort. If any other problems, please do not hesitate to return to the ER.
[2017-06-02 03:14] VITALS: BP 119/70
== END 2017-06-02 02:35 | disposition home or self-care (01) ==
LOC: JD.ED 23:16
DX: N12 Tubulo-interstitial nephritis, not specified as acute or chronic (principal); Z88.8 Allergy status to other drugs, medicaments and biological substances; Z87.891 Personal history of nicotine dependence
CPT/HCPCS: 99282; 99283

== ENCOUNTER 2017-08-02 13:02 | Emergency (ER) | payer BC ==
[2017-08-02 13:19] VITALS: BP 135/83
[2017-08-02] MEDS ORDERED: Sodium Chloride 0.9% 1,000 ML IV SCH (13:45)
[2017-08-02] MEDS ORDERED: Acetaminophen 325 MG Tab PO ONE (13:47)
[2017-08-02] MEDS ORDERED: HYDROmorphone 0.5 MG/0.5 ML Syringe IVPUSH ONE (14:02)
[2017-08-02] MEDS ORDERED: Sodium Chloride 0.9% 10 ML Syringe FLUSH PRN (14:02)
[2017-08-02] MEDS ORDERED: Ondansetron 4 MG/2 ML SDV IVPUSH ONE (14:02)
[2017-08-02] MEDS ORDERED: Cefepime 2 GM in Premix Bag 1 BAG IV ONE (14:06)
--- NOTE | 2017-08-02 14:21 | EDM.PDOC ---
ED HPI GENERAL MEDICAL PROBLEM - General Chief Complaint: Flank Pain Stated Complaint: POSSIBLE KIDNEY INFECTION Time Seen by Provider: 08/02/17 13:25 Source of Information: Reports: Patient History Limitations: Reports: No Limitations - History of Present Illness INITIAL COMMENTS - FREE TEXT/NARRATIVE: Patient is a 22-year-old female presents ED complaining of right upper/lower quadrant abdominal pain with right-sided flank pain and also right CVA tenderness. Symptoms started present 4 days ago had progressive gotten worse. Or the past few days appetite has diminished due to nausea. She's developed a fever of 101.6 has been dizzy with body position changes, with also intermittent chest discomfort that radiates from the right upper quadrant. There is no associated shortness of breath, sore throat, dysuria, constipation, diarrhea, increased flatulence, or dysuria. She denies being but states there is a chance. Last muscles cycle was July 14 and she is not on any contraceptives. Patient was evaluated here May 30, 2017 and diagnosed with urinary tract infection and started on Cipro. Urine cultures came back positive greater than 100,000 Escherichia coli susceptible to ciprofloxacin. She is evaluated in the ER here 2 days later due to feeling worse. No change the antibiotic therapy wasn't initiated since she was already on a medication that was susceptible to the bacteria that was present. She was diagnosed with pyelonephritis with bilateral low back pain present. The next day. Patient was seen in the [facility] ER and [place] with concerns of abscess in the kidney. CT the abdomen and pelvis with IV contrast revealed patient had bilateral pyelonephritis with ovarian cysts. Due to elevated liver enzymes the Nunez was discontinued and placed on naproxen. Patient was to follow up with primary care provider upon discharge. She completed the full course of antibiotic as prescribed. She's been doing well for the past 1-1/2 months until recently. Right Abdominal Pain Score (Numeric/FACES): 8 - Related Data Allergies Allergy/AdvReac Type Severity Reaction Status Date / Time isopropyl alcohol Allergy Mild Hives Verified 08/02/17 13:19 Home Meds: Home Meds Cefpodoxime Proxetil 200 mg PO BID #20 tablet 08/02/17 [Rx] Ondansetron [Zofran ODT] 4 mg PO Q6H PRN #12 tab.dis 08/02/17 [Rx] traMADol [Ultram] 50 mg PO Q6H PRN #8 tablet 08/02/17 [Rx] Past Medical History - Past Health History Medical/Surgical History: Denies Medical/Surgical History HEENT History: Reports: Impaired Vision Respiratory History: Reports: Asthma Genitourinary History: Reports: UTI, Recurrent, Other (See Below) Other Genitourinary History: liver infection; kidney infection; ovarian cysts [employer] History: Reports: Other OB/BYN History: A0 Neurological History: Reports: Concussion, Migraines Psychiatric History: Reports: Anxiety, Depression, Panic Attack, Suicide Attempt Hematologic History: Reports: Anemia - Past Surgical History HEENT Surgical History: Reports: Oral Surgery Oncologic Surgical History: Reports: Bone Marrow Aspiration Social & Family History - Family History Family Medical History: Noncontributory - Tobacco Use Smoking Status *Q: Never Smoker Used Tobacco, but Quit: No Month Tobacco Last Used: 2013 Second Hand Smoke Exposure: Yes - Caffeine Use Caffeine Use: Reports: None Caffeine Use Comment: Just this admission - Alcohol Use Days Per Week of Alcohol Use: 0 - Recreational Drug Use Recreational Drug Use: Yes Drug Use in Last 12 Months: No Recreational Drug Type: Reports: Marijuana/Hashish Other Recreational Drug Type: prior to oldest daughter being born and she was born 3 years ago - Living Situation & Occupation Living situation: Reports: Single, with Significant Other (Boyfriend) Occupation: Student (High school) ED ROS GENERAL - Review of Systems Review Of Systems: See Below Constitutional: Reports: Fever, Chills, Malaise, Fatigue, Decreased Appetite HEENT: Reports: No Symptoms Respiratory: Denies: Shortness of Breath, Cough, Sputum Cardiovascular: Reports: Chest Pain (Intermittent chest discomfort believes is referred from the right) GI/Abdominal: Reports: Abdominal Pain (Right upper and lower quadrant), Anorexia , Decreased Appetite, Nausea. Denies: Black Stool, Bloody Stool, Constipation, Diarrhea, Difficulty Swallowing, Distension, Flatus, Hematemesis, Hematochezia, Melena, Stool Incontinence, Vomiting : Reports: Flank Pain (Right). Denies: Dysuria, Frequency, Hematuria, Pain, Urgency Musculoskeletal: Reports: No Symptoms Skin: Reports: No Symptoms Neurological: Reports: Dizziness (Intermittent with standing). Denies: Headache , Numbness, Syncope, Tingling ED EXAM, GI/ABD - Physical Exam Exam: See Below Exam Limited By: No Limitations General Appearance: Alert, WD/WN, Mild Distress Ears: Hearing Grossly Normal Nose: Normal Inspection Throat/Mouth: Normal Voice, No Airway Compromise, Other (Oral mucosa is dry) Head: Atraumatic, Normocephalic Neck: Normal Inspection, Supple, Non-Tender, Full Range of Motion Respiratory/Chest: No Respiratory Distress, Lungs Clear, Normal Breath Sounds, No Accessory Muscle Use, Chest Non-Tender Cardiovascular: Normal Peripheral Pulses, Regular Rate, Rhythm, No Murmur GI/Abdominal Exam: Normal Bowel Sounds, Soft, No Organomegaly, No Distention, Other (Tenderness along McBurney's point and also positive for Pereira sign. Pain along the right CVA as well) (Female) Exam: Other (No adnexal tenderness. ) Back Exam: Normal Inspection, CVA Tenderness (R). No: CVA Tenderness (L) Extremities: Normal Inspection Neurological: Alert, Oriented, CN II-XII Intact, Normal Cognition, No Motor/ Sensory Deficits Psychiatric: Normal Affect, Normal Mood Skin Exam: Dry, Intact, Normal Color, Increased Warmth Course - Vital Signs Last Recorded V/S: Last Vital Signs Temp 102.3 F H 08/02/17 14:52 Pulse 120 H 08/02/17 13:13 Resp 16 08/02/17 13:13 BP 135/83 08/02/17 13:13 Pulse Ox 99 08/02/17 13:13 - Orders/Labs/Meds Orders: Active Orders 24 hr Category Date Time Status Peripheral IV Care [RC] . DIRECTED Care 08/02/17 14:02 Active Abdomen Pelvis w Cont [CT] Stat Exams 08/02/17 15:32 Taken CULTURE BLOOD [BC] Stat Lab 08/02/17 14:20 Received CULTURE BLOOD [BC] Stat Lab 08/02/17 14:25 Received CULTURE URINE [RM] Stat Lab 08/02/17 13:30 Received Sodium Chloride 0.9% [Normal Saline] 1,000 ml Med 08/02/17 13:45 Active IV ASDIRECTED Sodium Chloride 0.9% [Saline Flush] Med 08/02/17 14:02 Active 10 ml FLUSH ASDIRECTED PRN Blood Culture x2 Reflex Set [OM.PC] Stat Oth 08/02/17 13:44 Ordered Peripheral IV Insertion Adult [OM.PC] Routine Oth 08/02/17 14:02 Ordered Medication Orders Sodium Chloride (Normal Saline) 1,000 mls @ 999 mls/hr IV ASDIRECTED SELMA Last Admin: 08/02/17 14:26 Dose: 999 mls/hr Sodium Chloride (Saline Flush) 10 ml FLUSH ASDIRECTED PRN PRN Reason: Keep Vein Open Last Admin: 08/02/17 14:29 Dose: 10 ml Labs: Laboratory Tests 08/02/17 08/02/17 08/02/17 Range/Units 14:20 14:25 14:25 WBC 14.96 H (3.98-10.04) K/mm3 RBC 4.06 (3.98-5.22) M/mm3 Hgb 12.4 (11.2-15.7) gm/L Hct 36.5 (34.1-44.9) % MCV 89.9 (79.4-94.8) fl MCH 30.5 (25.6-32.2) pg MCHC 34.0 (32.2-35.5) g/dl RDW Std Deviation 43.2 (36.4-46.3) fL Plt Count 196 (182-369) K/mm3 MPV 12.1 (9.4-12.3) fl Neut % (Auto) 85.6 H (34.0-71.1) % Lymph % (Auto) 5.3 L (19.3-51.7) % Crowley % (Auto) 8.8 (4.7-12.5) % Eos % (Auto) 0 L (0.7-5.8) Baso % (Auto) 0.1 (0.1-1.2) % Neut # (Auto) 12.81 H (1.56-6.13) K/mm3 Lymph # (Auto) 0.79 L (1.18-3.74) K/mm3 Crowley # (Auto) 1.31 H (0.24-0.36) K/mm3 Eos # (Auto) 0.00 L (0.04-0.36) K/mm3 Baso # (Auto) 0.02 (0.01-0.08) K/mm3 Manual Slide Review Abnormal smear Sodium (136-145) mEq/L Potassium (3.5-5.1) mEq/L Chloride (98-107) mEq/L Carbon Dioxide (21-32) mEq/L Anion Gap (5-15) BUN (7-18) mg/dL Creatinine (0.55-1.02) mg/dL Est Cr Clr Drug Dosing mL/min Estimated GFR (MDRD) (>60) mL/min BUN/Creatinine Ratio (14-18) Glucose (74-106) mg/dL Lactic Acid 1.2 (0.4-2.0) mmol/L Calcium (8.5-10.1) mg/dL Total Bilirubin (0.2-1.0) mg/dL AST (15-37) U/L ALT (14-59) U/L Alkaline Phosphatase (46-116) U/L C-Reactive Protein (<1.0) mg/dL Total Protein (6.4-8.2) g/dl Albumin (3.4-5.0) g/dl Globulin gm/dL Albumin/Globulin Ratio (1-2) Lipase (73-393) U/L HCG, Qual Negative (NEGATIVE) 08/02/17 Range/Units 14:25 WBC (3.98-10.04) K/mm3 RBC (3.98-5.22) M/mm3 Hgb (11.2-15.7) gm/L Hct (34.1-44.9) % MCV (79.4-94.8) fl MCH (25.6-32.2) pg MCHC (32.2-35.5) g/dl RDW Std Deviation (36.4-46.3) fL Plt Count (182-369) K/mm3 MPV (9.4-12.3) fl Neut % (Auto) (34.0-71.1) % Lymph % (Auto) (19.3-51.7) % Crowley % (Auto) (4.7-12.5) % Eos % (Auto) (0.7-5.8) Baso % (Auto) (0.1-1.2) % Neut # (Auto) (1.56-6.13) K/mm3 Lymph # (Auto) (1.18-3.74) K/mm3 Crowley # (Auto) (0.24-0.36) K/mm3 Eos # (Auto) (0.04-0.36) K/mm3 Baso # (Auto) (0.01-0.08) K/mm3 Manual Slide Review Sodium 137 (136-145) mEq/L Potassium 3.9 (3.5-5.1) mEq/L Chloride 99 (98-107) mEq/L Carbon Dioxide 23 (21-32) mEq/L Anion Gap 18.9 H (5-15) BUN 11 (7-18) mg/dL Creatinine 0.9 (0.55-1.02) mg/dL Est Cr Clr Drug Dosing 78.54 mL/min Estimated GFR (MDRD) > 60 (>60) mL/min BUN/Creatinine Ratio 12.2 L (14-18) Glucose 86 (74-106) mg/dL Lactic Acid (0.4-2.0) mmol/L Calcium 8.9 (8.5-10.1) mg/dL Total Bilirubin 0.8 (0.2-1.0) mg/dL AST 82 H (15-37) U/L ALT 142 H (14-59) U/L Alkaline Phosphatase 182 H (46-116) U/L C-Reactive Protein 14.5 H* (<1.0) mg/dL Total Protein 7.6 (6.4-8.2) g/dl Albumin 3.4 (3.4-5.0) g/dl Globulin 4.2 gm/dL Albumin/Globulin Ratio 0.8 L (1-2) Lipase 66 L (73-393) U/L HCG, Qual (NEGATIVE) Meds: Medications Generic Name Dose Route Start Last Admin Trade Name Freq PRN Reason Stop Dose Admin Sodium Chloride 1,000 mls @ 999 mls/hr 08/02/17 13:45 08/02/17 14:26 Normal Saline IV 999 mls/hr ASDIRECTED SELMA Administration Sodium Chloride 10 ml 08/02/17 14:02 08/02/17 14:29 Saline Flush FLUSH 10 ml ASDIRECTED PRN Administration Keep Vein Open Discontinued Medications Generic Name Dose Route Start Last Admin Trade Name Freq PRN Reason Stop Dose Admin Acetaminophen 650 mg 08/02/17 13:47 08/02/17 14:36 Tylenol PO 08/02/17 13:48 650 mg NOW ONE Administration Diatrizoate Meglum/Diatrizoate Sod 90 ml 08/02/17 16:39 08/02/17 16:58 Gastrografin 37% PO 08/02/17 16:40 90 ml ONETIME ONE Administration Hydromorphone HCl 0.25 mg 08/02/17 14:02 08/02/17 14:30 Dilaudid IVPUSH 08/02/17 14:03 0.25 mg ONETIME ONE Administration Cefepime HCl 2 gm/ Premix 50 mls @ 100 mls/hr 08/02/17 14:06 08/02/17 14:42 IV 08/02/17 14:35 100 mls/hr ONETIME ONE Administration Iopamidol 100 ml 08/02/17 16:39 08/02/17 16:58 Isovue-300 (61%) IVPUSH 08/02/17 16:40 85 ml ONETIME ONE Administration Ondansetron HCl 4 mg 08/02/17 14:02 08/02/17 14:26 Zofran IVPUSH 08/02/17 14:03 4 mg ONETIME ONE Administration Sodium Chloride 10 ml 08/02/17 16:39 08/02/17 16:58 Saline Flush FLUSH 08/02/17 16:40 10 ml ONETIME ONE Administration - Re-Assessments/Exams Free Text/Narrative Re-Assessment/Exam: IV started with normal saline 2 L, Zofran 4 mg IVP, and Dilaudid 0.25 mg IVP. Initial labs and studies include CBC, chem 14, CRP, lactic acid, UA, hCG, blood cultures 2, and urine culture. Patient is febrile, tachycardic, and showing signs of volume depletion. Examination concerning for pyelonephritis and/or ascending cholangitis. Thus will start with cefepime 2 g IV. Once results of tests are available Will obtain a chest x-ray and obtain CT the abdomen and pelvis with IV contrast. 08/02/17 15:33 Reassessment, patient's temperature has dropped to 100.8. IV fluid and antibiotic are in. Lactic acid 1.2 and HCG neg. Order for CT of the abdomen and pelvis oral and IV ordered. 08/02/17 15:39 Still awaiting for CBC, chem 14, CRP, and lipase. White blood cell count 14.9, hemoglobin 12.4, neutrophil percentage is 85.6, neutrophil number is 12.81, sodium 137, potassium 3.9, CO2 23, AG 18.9, creatinine 0.9, glucose 86, lactic acid 1.2, AST 82, ALT 142, alk phosphatase 182, CRP 14.5, lipase 66, hCG negative. 08/02/17 17:47 CT the abdomen and pelvis reveals findings suspicious for right- sided pyelonephritis. Small amount of nonspecific free fluid in the pelvic cavity. Normal appearance to appendix. Will treat the patient with cefpodoxime proxetil 200mg bid for 14 days. Discharge instructions as documented. 08/02/17 17:49 Departure - Departure Time of Disposition: 17:51 Disposition: Home, Self-Care 01 Condition: Good Clinical Impression: Pyelonephritis - Discharge Information Prescriptions: Cefpodoxime Proxetil 200 mg PO BID #20 tablet Ondansetron [Zofran ODT] 4 mg PO Q6H PRN #12 tab.dis PRN Reason: Nausea/Vomiting traMADol [Ultram] 50 mg PO Q6H PRN #8 tablet PRN Reason: Pain (Severe 7-10) Instructions: Pyelonephritis, Adult, [id number] Referrals: Chaya Alvarez, [employer] INSTRUCTOR [Primary Care Provider] - Forms: ED Department Discharge Additional Instructions: As discussed CT the abdomen and pelvis reveals right-sided pyelonephritis. Will have you take cefpodoxime 200 mg twice a day for 10 days. For nausea Zofran 4 mg every 6 hours as needed. For severe pain not managed with the above therapies take tramadol 1 tab every 6 hours. Suggest utilizing Tylenol 650 mg every 6 hours and ibuprofen 600 mg every 6 hours and alternate fashion for pain. Do not take excessive amounts of Tylenol. Your liver enzymes remain elevated unclear etiology. Please follow up with PCP this coming week for reevaluation. At conclusion of therapy additional evaluation is required to ensure resolution and determine why you're having recurring pyelonephritis. In addition further evaluation for elevated LFTs is required. Return to ED as needed for any new or worsening symptoms. No driving this evening since receiving a sedative medication. No driving while taking the tramadol. - My Orders Last 24 Hours: My Active Orders 08/02/17 13:30 CULTURE URINE [RM] Stat 08/02/17 13:44 Blood Culture x2 Reflex Set [OM.PC] Stat 08/02/17 13:45 Sodium Chloride 0.9% [Normal Saline] 1,000 ml IV ASDIRECTED 08/02/17 14:02 Peripheral IV Care [RC] . DIRECTED Sodium Chloride 0.9% [Saline Flush] 10 ml FLUSH ASDIRECTED PRN Peripheral IV Insertion Adult [OM.PC] Routine 08/02/17 14:20 CULTURE BLOOD [BC] Stat 08/02/17 14:25 CULTURE BLOOD [BC] Stat 08/02/17 15:32 Abdomen Pelvis w Cont [CT] Stat - Assessment/Plan Last 24 Hours: My Active Orders 08/02/17 13:30 CULTURE URINE [RM] Stat 08/02/17 13:44 Blood Culture x2 Reflex Set [OM.PC] Stat 08/02/17 13:45 Sodium Chloride 0.9% [Normal Saline] 1,000 ml IV ASDIRECTED 08/02/17 14:02 Peripheral IV Care [RC] . DIRECTED Sodium Chloride 0.9% [Saline Flush] 10 ml FLUSH ASDIRECTED PRN Peripheral IV Insertion Adult [OM.PC] Routine 08/02/17 14:20 CULTURE BLOOD [BC] Stat 08/02/17 14:25 CULTURE BLOOD [BC] Stat 08/02/17 15:32 Abdomen Pelvis w Cont [CT] Stat
[2017-08-02] MEDS ORDERED: Iopamidol 612 MG/ML 100 ML Bottle IVPUSH ONE (16:39)
[2017-08-02] MEDS ORDERED: Sodium Chloride 0.9% 10 ML Syringe FLUSH ONE (16:39)
[2017-08-02] MEDS ORDERED: Diatrizoate Meglumine/Diatrizoate Sodium 37% 120 ML Bottle PO ONE (16:39)
--- NOTE | 2017-08-03 15:06 | CT ---
CT abdomen and pelvis Technique: Multiple axial sections were obtained from the top of the liver inferiorly to the pubic symphysis. Intravenous and oral contrast was utilized. Comparison: Previous CT abdomen and pelvis exam of 09/25/12. Several areas of poor enhancement seen within the right kidney. Findings raise the possibility of pyelonephritis. These findings are not seen on prior CT exam. Left kidney shows normal enhancement. Visualized lung bases are clear. Liver shows no focal parenchymal abnormality. Spleen appears within normal limits. Adrenal glands are unremarkable. Pancreas appears normal. Aorta shows no aneurysmal dilatation. No retroperitoneal adenopathy or mesenteric abnormalities are seen. No pelvic mass or adenopathy is seen. Small amount of fluid seen within the pelvis most likely physiologic. Appendix is seen and appears normal. Delayed images show contrast within the distal ureters and within the bladder. Bone window settings were reviewed which appear within normal limits for the patient's age. Impression: 1. Ill defined areas of poor enhancement seen within the right kidney suspicious for pyelonephritis. 2. Small amount of fluid within the pelvis believed to be physiologic. Diagnostic code #3 I agree with preliminary report issued by [facility] ([facility] report finalized on 08/02/17, 6:18 PM Central Time)
== END 2017-08-02 18:09 | disposition home or self-care (01) ==
LOC: JD.ED 13:02
DX: N12 Tubulo-interstitial nephritis, not specified as acute or chronic (principal); Z86.2 Personal history of diseases of the blood and blood-forming organs and certain disorders involving the immune mechanism; Z88.8 Allergy status to other drugs, medicaments and biological substances
CPT/HCPCS: 36415; 74177; 80053; 83605; 83690; 84703; 85025; 86140; 87040; 87086; 96361; 96365; 96375; 99285; A9270; J0692; J1170; J2405; J7040; J7050; Q9963; Q9967; 87088; 87186

== ENCOUNTER 2017-12-12 17:06 | Emergency (ER) | payer BC ==
[2017-12-12 17:28] VITALS: BP 138/93
--- NOTE | 2017-12-12 18:40 | EDM.PDOCBH ---
ED HPI GENERAL MEDICAL PROBLEM - General Chief Complaint: Behavioral/Psych Stated Complaint: MENTAL EVALUATION Time Seen by Provider: 12/12/17 17:42 Source of Information: Reports: Patient, RN Notes Reviewed - History of Present Illness INITIAL COMMENTS - FREE TEXT/NARRATIVE: 22 year old female comes in with hx of severe stress, anxiety, worse than usual today. Has a 1 and a 2 year old daughter that have both been from her. One is with her father here in [facility] that she only gets to see occasionally. The other is with a different father that lives in [place] 200 miles away that she gets to see more frequently without restriction but lives 200 miles away. The father of the 1 yr old today has been difficult to work with regarding visiting her daugher, told her today that his new girlfriend is "now the daughter's mother" This has been upsetting to patient prompting current visit. Was discharge on prozac, ativan, seroquil after an admission for overdose last February 10 months ago. Her father when he found out the meds "flushed them down a toilet" so she has been without any meds of that nature since that time. Has not seen a Psychiatrist or counselor any time recently. She does not feel suicidal at this time. Chest Pain Score (Numeric/FACES): 7 - Related Data Allergies Allergy/AdvReac Type Severity Reaction Status Date / Time isopropyl alcohol Allergy Mild Hives Verified 08/02/17 13:19 Home Meds: Home Meds FLUoxetine HCl [Prozac] 20 mg PO DAILY #30 capsule 12/12/17 [Rx] Past Medical History - Past Health History Medical/Surgical History: Denies Medical/Surgical History HEENT History: Reports: Impaired Vision Respiratory History: Reports: Asthma Genitourinary History: Reports: UTI, Recurrent, Other (See Below) Other Genitourinary History: liver infection; kidney infection; ovarian cysts [employer]NAGEMENT [employer] History: Reports: Other OB/BYN History: A0 Neurological History: Reports: Concussion, Migraines Psychiatric History: Reports: Anxiety, Depression, Panic Attack, Suicide Attempt Hematologic History: Reports: Anemia - Past Surgical History HEENT Surgical History: Reports: Oral Surgery Oncologic Surgical History: Reports: Bone Marrow Aspiration Social & Family History - Family History Family Medical History: Noncontributory - Tobacco Use Smoking Status *Q: Never Smoker Used Tobacco, but Quit: No Month Tobacco Last Used: 2013 Second Hand Smoke Exposure: Yes - Caffeine Use Caffeine Use: Reports: Coffee Caffeine Use Comment: Just this admission - Alcohol Use Days Per Week of Alcohol Use: 0 - Recreational Drug Use Recreational Drug Use: Yes Drug Use in Last 12 Months: No Recreational Drug Type: Reports: Other (see below) Other Recreational Drug Type: 3.5 yrs has been clean - Living Situation & Occupation Living situation: Reports: Single, with Significant Other (Boyfriend) Occupation: Student (High school) ED ROS GENERAL - Review of Systems Review Of Systems: See Below Constitutional: Reports: No Symptoms HEENT: Reports: No Symptoms. Denies: Throat Pain Respiratory: Denies: Shortness of Breath, Wheezing Cardiovascular: Denies: Chest Pain GI/Abdominal: Denies: Abdominal Pain, Nausea, Vomiting Musculoskeletal: Reports: No Symptoms Skin: Reports: No Symptoms Neurological: Reports: No Symptoms Psychiatric: Reports: Anxiety, Depression (mild), Mood Lability, Other (patient feels very stressed out not getting to see her one young daughter freely and regularly). Denies: Suicidal Ideation ED EXAM, BEHAVIORAL HEALTH - Physical Exam Exam: See Below General Appearance: Alert, No Apparent Distress Eye Exam: Bilateral Eye: PERRL Throat/Mouth: Normal Inspection Head: Atraumatic. No: Facial Swelling Neck: Supple, Full Range of Motion Respiratory/Chest: No Respiratory Distress, Lungs Clear, Normal Breath Sounds Cardiovascular: Regular Rate, Rhythm Extremities: Normal Inspection, Normal Range of Motion Neurological: Alert, Normal Mood/Affect Psychiatric: Alert, Normal Affect, Normal Cognition, Normal Mood. No: Tearful, Agitated, Suicidal Thoughts Skin Exam: Warm, Dry, Normal color COURSE, BEHAVIORAL HEALTH COMP - Course Vital Signs: Last Vital Signs Temp 99.7 F 12/12/17 17:25 Pulse 93 12/12/17 17:25 Resp 20 12/12/17 17:25 BP 138/93 H 12/12/17 17:25 Pulse Ox 100 12/12/17 17:25 Re-Assessment/Re-Exam: patient is not severely depressed, is not suicidal, not thoughts of self harm. She does not know how to deal with current stress or anxiety, would like to be on some type of meds as previously prescribed to try get at least some help in that way. Realizes that she needs to follow up with counselor or Psychiatry. Discharge instr. as documented. Departure - Departure Time of Disposition: 18:40 Disposition: Home, Self-Care 01 Condition: Fair Clinical Impression: Anxiety, Stress reaction - Discharge Information Prescriptions: FLUoxetine HCl [Prozac] 20 mg PO DAILY #30 capsule Referrals: Vimal Caruso MD [Primary Care Provider] - Forms: ED Department Discharge Additional Instructions: begin prozac 20 mg daily as prescribed which had also been prescribed for you last spring. Ativan 1/2 of a0.5 mg tablet twice daily for 2 days and than q 12 hour to be only used for severe anxiety or stress and not to be taken on a regular basis. See Dr Muñoz, telemed as soon as possible, next available appt. Call [phone] for appt. If that is not working out see counselor at [facility], next available appt. Return to ED as needed.
== END 2017-12-12 19:10 | disposition home or self-care (01) ==
LOC: JD.ED 17:06
DX: F41.9 Anxiety disorder, unspecified (principal); F43.9 Reaction to severe stress, unspecified; Z77.22 Contact with and (suspected) exposure to environmental tobacco smoke (acute) (chronic); Z79.899 Other long term (current) drug therapy; Z88.8 Allergy status to other drugs, medicaments and biological substances
CPT/HCPCS: 99284

== ENCOUNTER 2018-03-17 19:20 | Emergency (ER) | payer BC ==
[2018-03-17 19:35] VITALS: BP 129/83
[2018-03-17] MEDS ORDERED: Sodium Chloride 0.9% 1,000 ML IV ONE (20:13)
[2018-03-17] MEDS ORDERED: Sodium Chloride 0.9% 10 ML Syringe FLUSH PRN (20:14)
[2018-03-17] MEDS ORDERED: Acetaminophen 325 MG Tab PO ONE (20:14)
--- NOTE | 2018-03-17 20:30 | EDM.PDOC ---
ED HPI GENERAL MEDICAL PROBLEM - General Chief Complaint: Headache Stated Complaint: MYGRAIN/CRAMPING 17 WEEKS PG Time Seen by Provider: 03/17/18 19:49 Source of Information: Reports: Patient History Limitations: Reports: No Limitations - History of Present Illness INITIAL COMMENTS - FREE TEXT/NARRATIVE: 22-year-old female presents for evaluation and treatment of a headache as well as abdominal cramping and spotting. Patient reports she's had a headache for the last 2 days. Steadily worsening. She has not taken any medications such as Tylenol for her pain. She reports associated symptoms of nausea to episode of vomiting today. Patient is approximately 17 weeks She is a . She is currently seeing Dr. Genesis Rapp at [facility] in [place]. Reports that she's had lower abdominal cramping with pain radiating to her legs and feet. Sitting went on for the last few weeks. Steadily worsening. She is also had spotting on and off. She is states she spotting once twice a week. Not enough to soak a pad. Reports abdominal cramping located across her lower abdomen into her back and legs. She'll the pain is getting worse. Reports that she currently has a subchorionic hemorrhage that they're monitoring. She last saw her OB the end of February. Last ultrasound was about one week prior to that. Blood type is O+. generalized headache Pain Score (Numeric/FACES): 6 lower abdomen Pain Score (Numeric/FACES): 5 - Related Data Allergies Allergy/AdvReac Type Severity Reaction Status Date / Time isopropyl alcohol Allergy Mild Hives Verified 03/17/18 19:35 Home Meds: Home Meds Ondansetron [Zofran ODT] 1 tab PO QID PRN 03/17/18 [History] Vit with Ca/FA/Iron [ Plus Iron] 1 tab PO DAILY 03/17/18 [ History] Past Medical History - Past Health History Medical/Surgical History: Denies Medical/Surgical History HEENT History: Reports: Impaired Vision Respiratory History: Reports: Asthma Genitourinary History: Reports: UTI, Recurrent, Other (See Below) Other Genitourinary History: liver infection; kidney infection; ovarian cysts 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: Other OB/BYN History: A0 Neurological History: Reports: Concussion, Migraines Psychiatric History: Reports: Anxiety, Depression, Panic Attack, Suicide Attempt Hematologic History: Reports: Anemia - Past Surgical History HEENT Surgical History: Reports: Oral Surgery Oncologic Surgical History: Reports: Bone Marrow Aspiration Social & Family History - Family History Family Medical History: Noncontributory - Tobacco Use Smoking Status *Q: Never Smoker - Caffeine Use Caffeine Use: Reports: Soda Caffeine Use Comment: Just this admission - Recreational Drug Use Recreational Drug Use: No - Living Situation & Occupation Living situation: Reports: Single, with Significant Other (Boyfriend) Occupation: Student (High school) ED ROS GENERAL - Review of Systems Review Of Systems: See Below GI/Abdominal: Reports: Abdominal Pain (lower abdominal cramping), Nausea, Vomiting : Denies: Dysuria Musculoskeletal: Reports: Back Pain Neurological: Reports: Headache - Physical Exam Exam: See Below Exam Limited By: No Limitations General Appearance: Alert, WD/WN, No Apparent Distress Respiratory/Chest: No Respiratory Distress, Lungs Clear, Normal Breath Sounds Cardiovascular: Normal Peripheral Pulses, Regular Rate, Rhythm, No Murmur GI/Abdominal: Normal Bowel Sounds, Soft, Tender ( across her lower abdomen, minimal tenderness) (Female) Exam: Normal Speculum Exam, Vaginal Discharge (white). No: Cervical Dilatation (multiparous cervix visible, no blood), Vaginal Bleeding Neuro Exam (Abbreviated): Alert, Oriented, Normal Cognition Psychiatric: Normal Affect, Normal Mood Skin Exam: Warm, Dry, Normal Color Course - Vital Signs Last Recorded V/S: Last Vital Signs Temp 99.3 F 03/17/18 19:25 Pulse 108 H 03/17/18 19:25 Resp 18 03/17/18 19:25 BP 129/83 03/17/18 19:25 Pulse Ox 100 03/17/18 19:25 - Orders/Labs/Meds Orders: Active Orders 24 hr Category Date Time Status Pelvic Exam, Set Up [RC] ASDIRECTED Care 03/17/18 21:56 Ordered Peripheral IV Care [RC] . DIRECTED Care 03/17/18 20:14 Active UA W/MICROSCOPIC [URIN] Stat Lab 03/17/18 20:27 Ordered Peripheral IV Insertion Adult [OM.PC] Routine Oth 03/17/18 20:13 Ordered Labs: Laboratory Tests 03/17/18 03/17/18 03/17/18 Range/Units 20:27 20:27 20:27 WBC 11.53 H (3.98-10.04) K/mm3 RBC 3.93 L (3.98-5.22) M/mm3 Hgb 12.6 (11.2-15.7) gm/L Hct 36.6 (34.1-44.9) % MCV 93.1 (79.4-94.8) fl MCH 32.1 (25.6-32.2) pg MCHC 34.4 (32.2-35.5) g/dl RDW Std Deviation 43.5 (36.4-46.3) fL Plt Count 223 (182-369) K/mm3 MPV 10.5 (9.4-12.3) fl Neut % (Auto) 88.9 H (34.0-71.1) % Lymph % (Auto) 6.9 L (19.3-51.7) % Ellis % (Auto) 3.7 L (4.7-12.5) % Eos % (Auto) 0.1 L (0.7-5.8) Baso % (Auto) 0.2 (0.1-1.2) % Neut # (Auto) 10.25 H (1.56-6.13) K/mm3 Lymph # (Auto) 0.80 L (1.18-3.74) K/mm3 Ellis # (Auto) 0.43 H (0.24-0.36) K/mm3 Eos # (Auto) 0.01 L (0.04-0.36) K/mm3 Baso # (Auto) 0.02 (0.01-0.08) K/mm3 Manual Slide Review Abnormal smear Sodium 135 L (136-145) mEq/L Potassium 3.8 (3.5-5.1) mEq/L Chloride 101 (98-107) mEq/L Carbon Dioxide 23 (21-32) mEq/L Anion Gap 14.8 (5-15) BUN 9 (7-18) mg/dL Creatinine 0.6 (0.55-1.02) mg/dL Est Cr Clr Drug Dosing 123.72 mL/min Estimated GFR (MDRD) > 60 (>60) mL/min BUN/Creatinine Ratio 15.0 (14-18) Glucose 87 (74-106) mg/dL Calcium 9.1 (8.5-10.1) mg/dL Total Bilirubin 0.3 (0.2-1.0) mg/dL AST 29 (15-37) U/L ALT 34 (14-59) U/L Alkaline Phosphatase 117 H (46-116) U/L Total Protein 7.5 (6.4-8.2) g/dl Albumin 3.3 L (3.4-5.0) g/dl Globulin 4.2 gm/dL Albumin/Globulin Ratio 0.8 L (1-2) Urine Color Light yellow (Yellow) Urine Appearance Clear (Clear) Urine pH 7.0 (5.0-8.0) Ur Specific [place] 1.020 (1.005-1.030) Urine Protein Negative (Negative) Urine Glucose (UA) Negative (Negative) Urine Ketones Negative (Negative) Urine Occult Blood Negative (Negative) Urine Nitrite Negative (Negative) Urine Bilirubin Negative (Negative) Urine Urobilinogen 0.2 (0.2-1.0) Ur Leukocyte Esterase Negative (Negative) Urine RBC 0-5 (0-5) /hpf Urine WBC 0-5 (0-5) /hpf Ur Epithelial Cells 0-5 (0-5) /hpf Urine Bacteria Occasional (FEW) /hpf Urine Mucus Not seen (FEW) /hpf Meds: Medications Discontinued Medications Generic Name Dose Route Start Last Admin Trade Name Freq PRN Reason Stop Dose Admin Acetaminophen 975 mg 03/17/18 20:14 03/17/18 20:20 Tylenol PO 03/17/18 20:15 975 mg NOW ONE Administration Sodium Chloride 1,000 mls @ 999 mls/hr 03/17/18 20:13 03/17/18 20:25 Normal Saline IV 03/17/18 21:13 999 mls/hr ONETIME ONE Administration Sodium Chloride 10 ml 03/17/18 20:14 03/17/18 20:21 Saline Flush FLUSH 10 ml ASDIRECTED PRN Administration Keep Vein Open - Radiology Interpretation Free Text/Narrative:: Limited obstetrical ultrasound: Multiple real-time images were obtained. Comparison: No prior obstetrical ultrasound for current . Dates: Current ultrasound: DEEP 08/23/18, gestational age 17 weeks 2 days presentation: Breech Placenta: Posterior and low lying coming within 1.8 cm from the internal cervical os. Amniotic fluid: FLEX 10.10 cm Other findings: Hypoechoic area is seen below the inferior edge of the placenta which is felt compatible with very minimal placental abruption. Measurements: BPD: 3.76 cm - 17 weeks 4 days Head circumference: 13.92 cm - 17 weeks 3 days Abdominal circumference: 10.85 cm -16 weeks 6 days Femur length: 2.25 cm - 16 weeks 6 days Estimated weight: 170 g (0 lbs. 6 oz.), estimated weight at the 18th percentile for age by current ultrasound Heart rate: 153 BPM Impression: 1. Single intrauterine fetus currently breech in presentation. Dates as noted above. 2. Low lying placenta showing minimal abruption within the inferior edge of the placenta. - Re-Assessments/Exams Free Text/Narrative Re-Assessment/Exam: 03/17/18 22:[address] 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 Informed of ultrasound results. Recommended a speculum exam to ensure she is not heavily bleeding and her cervical os is closed. If there are no additional concerns that she could go home with close follow-up with her OB. I discussed the patient's ultrasound results as well s with her. She states that her headache is returning. Of note when I entered the room she was sleeping soundly. Plan will be to do a speculum exam. If within normal limits she can follow up with OB. She expresses understanding of this. 03/17/18 22:46 Speculum exams revealed a multi parous cervical os. No vaginal bleeding or bleeding from the cervix is appreciated. Cervix is closed. Regarding the patient's headache. She states that it is not as bad as earlier. She feels comfortable going home at this point. Recommended follow-up with her OB provider this week. Nothing vaginal clean no intercourse etc. until seen by an cleared by OB. Discharge instructions as documented. Departure - Departure Time of Disposition: 22:47 Disposition: Home, Self-Care 01 Condition: Fair Clinical Impression: Placental abruption in second trimester, Headache in - Discharge Information Instructions: Placental Abruption Referrals: PCP,Not In Area [Primary Care Provider] - Forms: ED Department Discharge Additional Instructions: Nothing vaginal, no intercourse, etc. until cleared by OB. Continue with your Zofran as needed for nausea. [id number] Tylenol as needed for headaches. He may also take over-the- counter Benadryl. if you continue to have problems with headaches recommend discussing with your OB for further medication. Make sure you're drinking plenty of fluids. Drink approximately half your body weight ounces every day. For you this means at least 60 ounces of fluids. Follow up with your CAR SHAGGER provider this week for recheck of your symptoms. Please return to the ER for symptoms change or worsen. - My Orders Last 24 Hours: My Active Orders 03/17/18 20:13 Peripheral IV Insertion Adult [OM.PC] Routine 03/17/18 20:14 Peripheral IV Care [RC] . DIRECTED 03/17/18 20:27 UA W/MICROSCOPIC [URIN] Stat 03/17/18 21:56 Pelvic Exam, Set Up [RC] ASDIRECTED - Assessment/Plan Last 24 Hours: My Active Orders 03/17/18 20:13 Peripheral IV Insertion Adult [OM.PC] Routine 03/17/18 20:14 Peripheral IV Care [RC] . DIRECTED 03/17/18 20:27 UA W/MICROSCOPIC [URIN] Stat 03/17/18 21:56 Pelvic Exam, Set Up [RC] ASDIRECTED
--- NOTE | 2018-03-17 21:27 | US ---
Limited obstetrical ultrasound: Multiple real-time images were obtained. Comparison: No prior obstetrical ultrasound for current . Dates: Current ultrasound: DEEP 08/23/18, gestational age 17 weeks 2 days presentation: Breech Placenta: Posterior and low lying coming within 1.8 cm from the internal cervical os. Amniotic fluid: FLEX 10.10 cm Other findings: Hypoechoic area is seen below the inferior edge of the placenta which is felt compatible with very minimal placental abruption. Measurements: BPD: 3.76 cm - 17 weeks 4 days Head circumference: 13.92 cm - 17 weeks 3 days Abdominal circumference: 10.85 cm -16 weeks 6 days Femur length: 2.25 cm - 16 weeks 6 days Estimated weight: 170 g (0 lbs. 6 oz.), estimated weight at the 18th percentile for age by current ultrasound Heart rate: 153 BPM Impression: 1. Single intrauterine fetus currently breech in presentation. Dates as noted above. 2. Low lying placenta showing minimal abruption within the inferior edge of the placenta. Diagnostic code #3
== END 2018-03-17 23:01 | disposition home or self-care (01) ==
LOC: JD.ED 19:20
DX: O45.92 Premature separation of placenta, unspecified, second trimester (principal); R51 Headache; O99.89 Other specified diseases and conditions complicating pregnancy, childbirth and the puerperium; Z88.8 Allergy status to other drugs, medicaments and biological substances; Z3A.17 17 weeks gestation of pregnancy
CPT/HCPCS: 36415; 76815; 80053; 81001; 85025; 99284; A9270; J7040; J7050; 96360; 99283

== ENCOUNTER 2018-03-20 23:52 | Emergency (ER) | payer BC, MEDICAID ==
[2018-03-21 00:10] VITALS: BP 120/79
--- NOTE | 2018-03-21 00:38 | EDM.PDOC ---
ED HPI GENERAL MEDICAL PROBLEM - General Chief Complaint: Gastrointestinal Problem Stated Complaint: 18 WKS BLOOD IN STOOL Time Seen by Provider: 03/21/18 00:21 Source of Information: Reports: Patient History Limitations: Reports: No Limitations - History of Present Illness INITIAL COMMENTS - FREE TEXT/NARRATIVE: The patient states that she has had watery diarrhea for about one week, then noticed some blood in the fluid of the diarrhea about 2 or 3 hours ago. She has had abdominal cramps, but no abdominal pain. No recent fever. The patient does not recall eating any spoiled food, although her boyfriend and his brother have also had diarrhea around the same amount of time, and the brother had brought some chicken home from [employer], which they suspect may have been the culprit. No recent antibiotics. No recent travel. The patient is approximately 18 weeks 1 day gestation. LMP 11/15/2017. Ab1. Her Machine Biller is Dr. Genesis Rapp, at [facility]. She reports that she has had nausea and emesis during her entire , and some uterine cramps over the past week. She states that she took some [id number] antidiarrheal medication that starts with a "K", and is supposed to be safe for , yesterday, which she states helped quite a bit. 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: , Other (See Below) (Ovarian cysts) : 4 Para: 2 Psychiatric History: Reports: Anxiety, Depression, Panic Attack, Suicide Attempt Hematologic History: Reports: Anemia - Past Surgical History HEENT Surgical History: Reports: Oral Surgery Oncologic Surgical History: Reports: Bone Marrow Aspiration (benign) Social & Family History - Family History Family Medical History: Noncontributory - Tobacco Use Smoking Status *Q: Never Smoker - Caffeine Use Caffeine Use: Reports: Coffee, Soda Caffeine Use Comment: Just this admission - Recreational Drug Use Recreational Drug Use: No - Living Situation & Occupation Living situation: Reports: Single, with Significant Other (Boyfriend) Occupation: Student (High school) ED ROS GENERAL - Review of Systems Review Of Systems: ROS reveals no pertinent complaints other than HPI. ED EXAM, GENERAL - Physical Exam Exam: See Below Exam Limited By: No Limitations General Appearance: Alert, WD/WN, No Apparent Distress Eye Exam: Bilateral Eye: Normal Inspection Ears: Normal External Exam, Hearing Grossly Normal Nose: Normal Inspection, No Blood Throat/Mouth: Normal Inspection, Normal Lips, Normal Voice, No Airway Compromise Head: Atraumatic, Normocephalic Neck: Normal Inspection, Full Range of Motion Respiratory/Chest: No Respiratory Distress, Lungs Clear, Normal Breath Sounds, No Accessory Muscle Use Cardiovascular: Normal Peripheral Pulses, Regular Rate, Rhythm, No Edema, No Gallop, No JVD, No Murmur, No Rub GI/Abdominal: Normal Bowel Sounds, Soft, Non-Tender, No Organomegaly, No Distention, No Abnormal Bruit, Other (Gravid uterus, consistent with dates) (Female) Exam: Deferred Rectal (Female) Exam: Deferred Back Exam: Normal Inspection, Full Range of Motion, NT Extremities: Normal Inspection, Normal Range of Motion, No Pedal Edema, Normal Capillary Refill Neurological: Alert, Oriented, Normal Cognition, No Motor/Sensory Deficits Psychiatric: Normal Affect Skin Exam: Warm, Dry, Intact, Normal Color, No Rash Course - Vital Signs Last Recorded V/S: Last Vital Signs Temp 36.6 C 03/21/18 00:00 Pulse 105 H 03/21/18 00:00 Resp 18 03/21/18 00:00 BP 120/79 03/21/18 00:00 Pulse Ox 99 03/21/18 00:00 - Orders/Labs/Meds Orders: Active Orders 24 hr Category Date Time Status Heart Tones [RC] ASDIRECTED Care 03/21/18 00:34 Active CULTURE STOOL + SHIGATOX [RM] Stat Lab 03/21/18 00:25 Ordered - Re-Assessments/Exams Free Text/Narrative Re-Assessment/Exam: 03/21/18 00:33 The patient reports some blood in the liquid portion of her diarrhea for the past couple of hours, but on Hemoccult of her stool, is only faintly positive. We will send some stool studies, but no treatment is required at this time. heart tones were found to be 150 bpm. Departure - Departure Time of Disposition: 00:33 Disposition: Home, Self-Care 01 Condition: Good Clinical Impression: Diarrhea - Discharge Information Instructions: Diarrhea, Adult, [id number] Referrals: PCP,Not In Area [Primary Care Provider] - Forms: ED Department Discharge Additional Instructions: You were seen in the emergency room for some blood noticed in your diarrhea tonight. On examination, your stool is faintly positive for blood. A sample of your stool was sent for culture. Blood in diarrhea does not usually indicate anything serious, however, if a specific bacteria that requires treatment is found in your stool, you'll be notified. heart tones in the ER were 150 bpm, which is normal at this gestational age. Stay adequately hydrated. Follow-up with your OB, Genesis Rapp, this coming week. If any other problems, please do not hesitate to return to the ER. - My Orders Last 24 Hours: My Active Orders 03/21/18 00:25 CULTURE STOOL + SHIGATOX [RM] Stat 03/21/18 00:34 Heart Tones [RC] ASDIRECTED - Assessment/Plan Last 24 Hours: My Active Orders 03/21/18 00:25 CULTURE STOOL + SHIGATOX [RM] Stat 03/21/18 00:34 Heart Tones [RC] ASDIRECTED
== END 2018-03-21 00:43 | disposition home or self-care (01) ==
LOC: JD.ED 23:52
DX: O99.89 Other specified diseases and conditions complicating pregnancy, childbirth and the puerperium (principal); R19.7 Diarrhea, unspecified; Z88.8 Allergy status to other drugs, medicaments and biological substances; Z3A.18 18 weeks gestation of pregnancy
CPT/HCPCS: 82270; 87046; 99282; 99284-25